=== PATIENT | female | born 1930 | race Caucasian/White ===

== ENCOUNTER 2017-02-14 14:29 | Emergency (ER) | payer MEDICARE, BC ==
--- NOTE | 2017-02-15 05:04 | ER ---
DATE SEEN: 02/14/2017 TIME SEEN: The patient was seen at 1526 hours. HISTORY OF PRESENT ILLNESS: This is an 86-year-old woman, who had urinary tract symptoms of frequency, urgency, and dysuria last night. She has not had urinary tract symptoms for a year. ALLERGIES: She is allergic to multiple medications including bacitracin, Keflex, penicillin, ceftriaxone, clindamycin, ketorolac, levofloxacin, sulfamethoxazole and trimethoprim, cefadroxil, and nitrofurantoin. MEDICATIONS: Currently: 1. Calcium carbonate. 2. Zebeta - bisoprolol, intrinsic sympathomimetic beta-dayne. 3. Prednisone. 4. Multivitamin. REVIEW OF SYSTEMS: She has multiple pregnancies 5, para 5-0-0-5. Degenerative joint disease, rheumatism. No history of dactylitis, except she has some rheumatism. PHYSICAL EXAMINATION: VITAL SIGNS: See nurse's note for vital signs. GENERAL: Alert woman, in mild distress, very pleasant. Looks younger than her age (86). HEENT: Without abnormality. TMs negative. Pharynx without abnormality. No thyromegaly or masses. NECK: No cervical adenopathy. LUNGS: Clear without rales, rhonchi, or wheezes. HEART: S1, S2. No murmur. No irregular rate and rhythm. ABDOMEN: Soft. No guarding. No rebound. She has mild suprapubic discomfort. No CVA percussion tenderness. LOWER EXTREMITIES: Without edema. ASSESSMENT: Urinary tract infections, greater than 100 wbc's, greater than 100 rbc's, few bacteria. The latter findings without bacteria would suggest she could have a stone, interstitial cystitis, or a tumor in the bladder. PLAN: Treat empirically with an antibiotic. Initially, she was placed on fosfomycin because she has so many allergies, but the pharmacy called and does not have it. Consequently, she was placed on Augmentin 500 mg b.i.d., 20 tablets. Follow up with doctor in a week or earlier if worse. Consider cystoscopy. /[id number] LIZZETH/MED PRADO
[2017-02-15 10:53] VITALS: BP 150/70
== END 2017-02-14 15:43 | disposition home or self-care (01) ==
LOC: FB.ED 14:29
DX: N39.0 Urinary tract infection, site not specified (principal)
CPT/HCPCS: 81001; 87086; 87088; 87186; 99282; 99283

== ENCOUNTER 2018-09-27 06:28 | Day surgery (SDC) | payer MEDICARE, BC ==
[2018-09-27] MEDS ORDERED: fentaNYL 100 MCG/2 ML SDV IV ONE (06:29)
[2018-09-27] MEDS ORDERED: Midazolam 1 MG/ML 2 ML SDV IV ONE (06:29)
[2018-09-27] MEDS ORDERED: Sodium Chloride 0.9% 10 ML Syringe FLUSH PRN (06:30)
[2018-09-27 09:11] VITALS: BP 108/57
--- NOTE | 2018-09-28 09:36 | OR ---
DATE OF OPERATION: 09/27/2018 SURGEON: Johanna Brunner MD PREOPERATIVE DIAGNOSIS: Visually significant cataract, left eye. POSTOPERATIVE DIAGNOSIS: Visually significant cataract, left eye. PROCEDURES PERFORMED: Phacoemulsification with intraocular lens placement, left eye. ASSISTANTS: None. ANESTHESIA: Local with sedation. COMPLICATIONS: None. BLOOD LOSS: None. IMPLANTS: PAKO PCB00, 21.0 diopter lens implanted. CDE: 4.68. DESCRIPTION OF PROCEDURE: After risks and benefits were reviewed with the patient, consent was obtained in the preoperative area, and the operative eye was marked with a surgical pen. In the preoperative area, a pledget was used to dilate the pupil consisting of a mixture of phenylephrine 10%, cyclopentolate 2%, moxifloxacin 0.5%, and bupivacaine 0.75%. The patient was taken to the operating room, where a time-out was performed, and the patient was placed under monitored anesthesia care. Topical tetracaine was used for anesthesia. The operative eye was prepped and draped for ophthalmic surgery, and the microscope was brought into position and focussed. A paracentesis incision was made, followed by injection of preservative-free 1% lidocaine into the anterior chamber, followed by injection of Viscoat into the anterior chamber. A microkeratome blade was used to make a corneal limbal incision temporarily. A cystotome was used to make the beginning of the capsulorrhexis, which was carried around 360 degrees in a curvilinear fashion using Utrata forceps. A Garcia cannula with BSS was used to hydrodissect and hydro-delineate the nucleus. The nucleus was removed in a divide and conquer manner using phacoemulsification. Irrigation and aspiration were used to remove the remaining cortical material. Provisc was used to inflate the capsular bag, and a pre-loaded PAKO PCB00, 21.0 diopter lens, serial number [id number], was injected into the capsular bag. A Sinskey hook was used to position and center the lens. Next, irrigation and aspiration was used to remove any remaining viscoelastic and cortical material from the anterior chamber. BSS on a cannula was used to inflate the anterior chamber and hydrate the wound. The wound was checked and found to be watertight. 1 mg of Moxifloxacin was injected into the anterior chamber. Drapes were removed and the eye was cleaned. A drop of brimonidine 0.15% and a drop of TobraDex was placed. The eye was shielded, and the patient was taken to the recovery room in stable condition. /[id number] MAXIMILIANO/MED CC: CHANELLE BENZ, ADITI [email or web address]
== END 2018-09-27 09:27 | disposition home or self-care (01) ==
LOC: FB.SDS 06:28
PROVIDERS: ATTEND Ophthalmology
DX: H25.812 Combined forms of age-related cataract, left eye (principal); H02.889 Meibomian gland dysfunction of unspecified eye, unspecified eyelid; H35.3120 Nonexudative age-related macular degeneration, left eye, stage unspecified; H35.3210 Exudative age-related macular degeneration, right eye, stage unspecified; H50.9 Unspecified strabismus; I10 Essential (primary) hypertension; G62.9 Polyneuropathy, unspecified; K57.92 Diverticulitis of intestine, part unspecified, without perforation or abscess without bleeding; M35.3 Polymyalgia rheumatica; M79.89 Other specified soft tissue disorders; Z88.1 Allergy status to other antibiotic agents; Z88.8 Allergy status to other drugs, medicaments and biological substances; Z98.41 Cataract extraction status, right eye; Z96.1 Presence of intraocular lens; Z85.038 Personal history of other malignant neoplasm of large intestine; Z79.52 Long term (current) use of systemic steroids; Z79.899 Other long term (current) drug therapy
CPT/HCPCS: 00142-QZ; J2250; J3010

== ENCOUNTER 2018-11-16 08:13 | Inpatient (IN) | payer MEDICARE, BC ==
[2018-11-16] MEDS ORDERED: Bisacodyl 5 MG Tab PO PRN (12:18)
[2018-11-16] MEDS ORDERED: Promethazine 25 MG Tab PO ONE (12:19)
[2018-11-16] MEDS: Acetaminophen 500 MG Tab PO SCH ×2 (14:00→22:05)
--- NOTE | 2018-11-16 15:28 | PCM.HP ---
H&P History of Present Illness - General Date of Service: 11/16/18 Admit Problem/Dx: Admission Diagnosis/Problem Admission Diagnosis/Problem Rehabilitation therapy Source of Information: Patient, Family, Old Records History Limitations: Reports: No Limitations - History of Present Illness Initial Comments - Free Text/Narative: Patient is an 88 year old female who sustained left hip fracture on November 12. She underwent open reduction [facility] She had monitoring for low hemoglobin which dropped to 8.0 yesterday, repeat Hgb in our facility today is 8.8. She had some fatigue, dizziness yesterday but nothing today. Tired, deconditioning. No fevers, chills, sinus congestion, sore throat. No shortness of breath, chest pain or palpitations. No abdominal pain, vomiting, constipation or diarrhea. She has had nausea since injury and [employer] has not worked for her symptoms. Her daughter states that Benadryl seemed to help. Her appetite has been poor due to the nausea. Denies any frequency, dysuria or hematuria. Some edema in left leg but denies any pain. She states she had her doctor tell her she had a murmur but was never have a work up for it. History of right colon cancer treated with resection, diverticulosis also treated with left colon resection. - Related Data Allergies/Adverse Reactions: Allergies Allergy/AdvReac Type Severity Reaction Status Date / Time cefadroxil hydrate Allergy Rash Verified 09/27/18 07:10 [From Duricef] ceftriaxone sodium Allergy Rash Verified 09/27/18 07:10 [From Rocephin] clindamycin HCl Allergy Rash Verified 09/27/18 07:10 [From Cleocin] clindamycin palmitate HCl Allergy Rash Verified 09/27/18 07:10 [From Cleocin] clindamycin phosphate Allergy Rash Verified 09/27/18 07:10 [From Cleocin] ketorolac Allergy Rash Verified 09/27/18 07:10 levofloxacin [From Levaquin] Allergy Rash Verified 09/27/18 07:10 nitrofurantoin Allergy Pain Verified 09/27/18 07:10 sulfamethoxazole Allergy Rash Verified 09/27/18 07:10 [From Bactrim] trimethoprim [From Bactrim] Allergy Rash Verified 09/27/18 07:10 Home Medications: Home Meds predniSONE [Prednisone] 2 mg PO DAILY 02/17/15 [History] Bisoprolol/Hydrochlorothiazide [Bisoprolol/HCTZ 5-6.25 MG] 1 tab PO DAILY [History] Lutein 1 cap PO DAILY 09/22/18 [History] Acetaminophen [Acetaminophen Extra Strength] 1,000 mg PO Q8H 11/16/18 [History] Calcium Carbonate [Calcium] 500 mg PO WITHBREAKFAST 11/16/18 [History] Cholecalciferol (Vitamin D3) [Vitamin D3] 25 mcg PO DAILY 11/16/18 [History] Enoxaparin [Lovenox] 40 mg SUBCUT DAILY 11/16/18 [History] Polyethylene Glycol 3350 [MiraLAX] 17 gm PO DAILY 11/16/18 [History] Sennosides/Docusate Sodium [Senna-S] 1 each PO BID 11/16/18 [History] diphenhydrAMINE [Benadryl] 25 mg PO BEDTIME PRN 11/16/18 [History] oxyCODONE 2.5 mg PO Q4H PRN 11/16/18 [History] oxyCODONE 5 mg PO Q4H PRN 11/16/18 [History] Past Medical History HEENT History: Reports: Cataract, Macular Degeneration Cardiovascular History: Reports: Heart Murmur, High Cholesterol, Hypertension Other Cardiovascular History: murmur not specified Gastrointestinal History: Reports: Diverticulosis Genitourinary History: Reports: UTI, Recurrent Musculoskeletal History: Reports: Other (See Below) Other Musculoskeletal History: POLYMYALGIA RHEUMATICA Oncologic (Cancer) History: Reports: Colon - Past Surgical History HEENT Surgical History: Reports: Cataract Surgery Other HEENT Surgeries/Procedures: LEFT CATARACT SURGERY 6 WEEKS AGO. RIGHT CATARACT SURGERY 5 YEARS AGO. GI Surgical History: Reports: Appendectomy, Other (See Below) Other GI Surgeries/Procedures: RIGHT & LEFT COLECTOMY PARTIAL W ANASTOMOSIS, COLON CA & DIVERTICULOSIS Female Surgical History: Reports: Hysterectomy, Tubal Ligation Oncologic Surgical History: Reports: None Social & Family History - Family History Family Medical History: Noncontributory Cardiac: Reports: Other (See Below) Other Cardiac Family History: mother had develop cardiac problem on her 102 years. Respiratory: Reports: None Musculoskeletal: Reports: Arthritis, Other (See Below) Other Musculoskeletal Family History: father had arthritis Oncologic: Reports: Lymphoma, Other (See Below) Other Oncologic Family History: pt's father had lymphoma. - Tobacco Use Smoking Status *Q: Never Smoker - Caffeine Use Caffeine Use: Reports: Coffee Other Caffeine Use: half a cup of coffee a day. - Alcohol Use Alcohol Use History: No - Recreational Drug Use Recreational Drug Use: No H&P Review of Systems - Review of Systems: Review Of Systems: See Below General: Reports: Fatigue. Denies: Fever, Chills, Diaphoresis HEENT: Denies: Ear Pain, Eye Pain, Rhinitis, Sinus Congestion, Sore Throat Pulmonary: Denies: Shortness of Breath, Cough Cardiovascular: Reports: Edema. Denies: Chest Pain, Palpitations, Lightheadedness Gastrointestinal: Reports: Decreased Appetite, Nausea. Denies: Abdominal Pain, Black Stool, Bloody Stool, Constipation, Diarrhea, Vomiting Genitourinary: Denies: Dysuria, Frequency, Hematuria Musculoskeletal: Reports: Leg Pain Skin: Reports: Pallor Psychiatric: Denies: Confusion Neurological: Denies: Dizziness, Headache Immunologic: Denies: Environmental Allergy, Pollen Allergy Exam - Exam Exam: See Below - Vital Signs Vital Signs: Last Vital Signs Temp 37.1 C 11/16/18 12:00 Pulse 68 11/16/18 12:00 Resp 16 11/16/18 12:00 BP 144/64 H 11/16/18 12:00 Pulse Ox 97 11/16/18 12:00 Weight: 77.593 kg - Exam General: Alert, Oriented, Cooperative HEENT: PERRLA, Conjunctiva Clear, EOMI, Mucosa Moist & [place], Nares Patent, Posterior Pharynx Clear, TMs Clear Neck: Supple, Trachea Midline, +2 Carotid Pulse wo Bruit Lungs: Clear to Auscultation Cardiovascular: Regular Rate, Regular Rhythm, Systolic Murmur (non-radiating, best heard at Right 4th intercostal space) GI/Abdominal Exam: Normal Bowel Sounds, Soft, Non-Tender, No Distention Extremities: Non-Tender, Pedal Edema (trace LLE, no edema on right) Peripheral Pulses: 2+: Radial (L), Radial (R), Dorsalis Pedis (L), Dorsalis Pedis (R) Skin: Warm, Dry, Intact, Ecchymosis (posterior pharynx) Neurological: Cranial Nerves Intact, Normal Speech Neuro Extensive - Mental Status: Alert, Oriented x3, Normal Mood/Affect, Normal Cognition, Memory Intact - Patient Data Lab Results Last 24 hrs: Laboratory Results - last 24 hr 11/16/18 11/16/18 Range/Units 12:00 12:00 WBC 11.8 (4.5-12.0) X10-3/uL RBC 3.06 L (3.23-5.20) x10(6)uL Hgb 8.8 L (11.5-15.5) g/dL Hct 26.0 L (30.0-51.3) % MCV 84.9 (80-96) fL MCH 28.9 (27.7-33.6) pg MCHC 34.1 (32.2-35.4) g/dL RDW 12.5 (11.5-15.5) % Plt Count 261 (125-369) X10(3)uL MPV 7.3 L (7.4-10.4) fL Neut % (Auto) 79.4 (46-82) % Lymph % (Auto) 13.2 (13-37) % [facility] % (Auto) 6.0 (4-12) % Eos % (Auto) 1 (1.0-5.0) % Baso % (Auto) 0 (0-2) % Neut # (Auto) 9.4 H (1.6-8.3) # Lymph # (Auto) 1.6 (0.6-5.0) # [facility] # (Auto) 0.7 (0.0-1.3) # Eos # (Auto) 0.1 (0.0-0.8) # Baso # (Auto) 0.0 (0.0-0.2) # Sodium 137 (135-145) mmol/L Potassium 3.7 (3.5-5.3) mmol/L Chloride 98 L (100-110) mmol/L Carbon Dioxide 31 (21-32) mmol/L BUN 25 H (7-18) mg/dL Creatinine 1.0 (0.55-1.02) mg/dL Est Cr Clr Drug Dosing TNP Estimated GFR (MDRD) 52 L (>60) BUN/Creatinine Ratio 25.0 H (9-20) Glucose 177 H (80-116) mg/dL Calcium 9.2 (8.6-10.2) mg/dL Result Diagrams: 11/16/18 12:00 11/16/18 12:00 *Q Meaningful Use (ADM) - VTE Risk Assess *Q Each Risk Factor Represents 1 Point: History of prior major surgery less than 1 month Total Score 1 Point Risk Factors: 1 Each Risk Factor Represents 2 Points: Malignancy (present or previous) Total Score 2 Point Risk Factors: 2 Each Risk Factor Represents 3 Points: Age 75 Years or Greater Total Score 3 Point Risk Factors: 3 Each Risk Factor Represents 5 Points: Hip, Pelvis or Leg Fracture, Less than 1 month Total Score 5 Point Risk Factors: 5 Venous Thromboembolism Risk Factor Score *Q: 11 - Problem List (1) Closed fracture of left hip SNOMED Code(s): 676588470 ICD Code: S72.002A - FRACTURE OF UNSP PART OF NECK OF LEFT FEMUR, INIT Status: Acute Current Visit: Yes Onset Date: ~11/12/18 (2) Essential hypertension SNOMED Code(s): 59003792 ICD Code: I10 - ESSENTIAL (PRIMARY) HYPERTENSION Status: Acute Current Visit: Yes (3) Polymyalgia rheumatica SNOMED Code(s): 35497311 ICD Code: M35.3 - POLYMYALGIA RHEUMATICA Status: Acute Current Visit: Yes (4) Status post-operative repair of closed fracture of left hip SNOMED Code(s): 858392689 ICD Code: Z98.890 - OTHER SPECIFIED POSTPROCEDURAL STATES; Z87.81 - PERSONAL HISTORY OF (HEALED) TRAUMATIC FRACTURE Status: Acute Current Visit: Yes Onset Date: ~11/13/18 Problem Details: by Dr Camara (5) Acute blood loss anemia SNOMED Code(s): 848122375 ICD Code: D62 - ACUTE POSTHEMORRHAGIC ANEMIA Status: Acute Current Visit : Yes Problem List Initiated/Reviewed/Updated: Yes Orders Last 24hrs: Active Orders 24 hr Category Date Time Status Patient Status [ADT] Routine ADT 11/16/18 11:26 Active Antiembolic Devices [RC] .Routine Care 11/16/18 11:31 Active Cooling Warming Measures [RC] ASDIRECTED Care 11/16/18 11:38 Active Dressing Change [Wound Care] [RC] DAILY Care 11/16/18 11:41 Active Elevate Extremity [RC] BID Care 11/16/18 11:40 Active Height and Weight [RC] WEEKLY Care 11/16/18 11:26 Active May Shower [RC] ASDIRECTED Care 11/16/18 11:31 Active Oxygen Therapy [RC] PRN Care 11/16/18 11:26 Active Up ad Elana [RC] ASDIRECTED Care 11/16/18 11:31 Active VTE/DVT Education [RC] DAILY Care 11/16/18 11:26 Active Vital Signs [RC] 08 Care 11/16/18 11:26 Active OT Evaluation and Treatment [CONS] Routine Cons 11/16/18 11:31 Active PT Evaluation and Treatment [CONS] Routine Cons 11/16/18 11:31 Active Regular Diet [DIET] Diet 11/16/18 Dinner Active Acetaminophen [Tylenol Extra Strength] Med 11/16/18 14:00 Active 1,000 mg PO Q8H Bisacodyl [Dulcolax] Med 11/16/18 12:18 Active 5 mg PO DAILY PRN Bisoprolol/Hydrochlorothiazide [Ziac 5-6.25 MG] Med 11/17/18 09:00 Active 1 tab PO DAILY Calcium Carbonate [Oyster Shell Calcium] Med 11/17/18 08:00 Active 500 mg PO WITHBREAKFAST Cholecalciferol (Vitamin D3) [Vitamin D3] Med 11/17/18 09:00 Active 25 mcg PO DAILY Docusate Sodium/Sennosides [Senna Plus] Med 11/16/18 21:00 Active 1 tab PO BID Enoxaparin [Lovenox] Med 11/17/18 09:00 Active 40 mg SUBCUT DAILY Lutein Med 11/17/18 09:00 Active 10 mg PO DAILY Polyethylene Glycol 3350 [MiraLAX] Med 11/17/18 09:00 Active 17 gm PO DAILY Promethazine [Phenergan] Med 11/16/18 12:35 Active 12.5 mg PO Q4H PRN diphenhydrAMINE [Benadryl] Med 11/16/18 12:17 Active 25 mg PO BEDTIME PRN oxyCODONE Med 11/16/18 12:17 Active 2.5 mg PO Q4H PRN oxyCODONE Med 11/16/18 12:17 Active 5 mg PO Q4H PRN predniSONE Med 11/17/18 09:00 Active 2 mg PO DAILY Anticoagulation Contraindications VTE [AST] Per Unit Oth 11/16/18 11:31 Ordered Routine Antiembolic Hose [OM.PC] Per Unit Routine Oth 11/16/18 11:33 Ordered Ice Pack [Ice Therapy] [OM.PC] Routine Ot 11/16/18 11:38 Ordered Patient May [OM.PC] Click To Edit Ot 11/16/18 11:31 Ordered Adryan Sutures Removal [RC] ROUTINE Oth 11/28/18 09:00 Active VTE Pharmacological Contraindications [AST] Per Unit Oth 11/16/18 11:31 Ordered Routine Resuscitation Status Routine Resus Stat 11/16/18 11:25 Ordered Medication Orders Acetaminophen (Tylenol Extra Strength) 1,000 mg PO Q8H [facility] Last Admin: 11/16/18 14:00 Dose: 1,000 mg Bisacodyl (Dulcolax) 5 mg PO DAILY PRN PRN Reason: Constipation Bisoprolol Fumarate/HCTZ (Ziac 5-6.25 Mg) 1 tab PO DAILY [facility] Calcium Carbonate/Glycine (Oyster Shell Calcium) 500 mg PO WITHBREAKFAST [facility] Cholecalciferol (Vitamin D3) 25 mcg PO DAILY [facility] Diphenhydramine HCl (Benadryl) 25 mg PO BEDTIME PRN PRN Reason: Insomnia Enoxaparin Sodium (Lovenox) 40 mg SUBCUT DAILY [facility] Stop: 12/10/18 09:01 Lutein (Lutein) 10 mg PO DAILY [facility] Oxycodone HCl (Oxycodone) 2.5 mg PO Q4H PRN PRN Reason: Pain (moderate 4-6) Oxycodone HCl (Oxycodone) 5 mg PO Q4H PRN PRN Reason: Pain (severe 7-10) Polyethylene Glycol (Miralax) 17 gm PO DAILY [facility] Prednisone (Prednisone) 2 mg PO DAILY [facility] Promethazine HCl (Phenergan) 12.5 mg PO Q4H PRN PRN Reason: NAUSEA/VOMITING Senna/Docusate Sodium (Senna Plus) 1 tab PO BID [facility] Assessment/Plan Comment:: 1. Admit to swing bed for rehab services, PT/OT. 2. Continue home medications. 3. Continue pain regiment from discharge: Oxycodone 2.5 mg for moderate pain and 5 mg for severe pain. Tylenol. Patient does not want to stay on oxycodone and would like to start weaning possibly Wednesday. 4. Acute blood loss anemia secondary to fracture: Hgb up to 8.8 today. Repeat Wednesday or earlier if asymptomatic. 5. Nausea: will try promethazine since Babar worked in [place], if controls her symptoms then will have available q4h as needed. 6. DVT prophylaxis: Lovenox 40 mg SQ daily x 24 days. 7. Wound care: occlusive dressing in place for 7 days, next dressing change on November 23, may change earlier if drainage present. Adryan due to be removed November 28. May shower with waterproof covering over dressing. 8. Code status: DNR/DNI
[2018-11-16] MEDS: oxyCODONE 5 MG Tab PO PRN ×2 (16:54→21:09)
[2018-11-17] MEDS: oxyCODONE 5 MG Tab PO PRN ×4 (01:19→22:00)
[2018-11-17] MEDS: Acetaminophen 500 MG Tab PO SCH ×3 (05:59→21:59)
[2018-11-17] MEDS: Calcium Carbonate 500 MG Tablet PO SCH (08:51)
[2018-11-17] MEDS: Cholecalciferol (Vitamin D3) 25 MCG Tab PO SCH (08:52)
[2018-11-17] MEDS: Polyethylene Glycol 3350 Powder 17 GM Packet PO SCH (08:54)
[2018-11-17] MEDS: Enoxaparin 40 MG/0.4 ML Syringe SUBCUT SCH (08:57)
[2018-11-17] MEDS ORDERED: predniSONE 1 MG Tab PO SCH (09:00)
[2018-11-17] MEDS: Promethazine 25 MG Tab PO PRN ×2 (17:19→21:59)
[2018-11-17] MEDS: diphenhydrAMINE 25 MG Cap PO PRN (19:50)
[2018-11-18] MEDS: Promethazine 25 MG Tab PO PRN ×2 (06:44→21:01)
[2018-11-18] MEDS: oxyCODONE 5 MG Tab PO PRN ×3 (06:44→19:04)
[2018-11-18] MEDS: Acetaminophen 500 MG Tab PO SCH ×3 (06:44→21:01)
[2018-11-18] MEDS: Cholecalciferol (Vitamin D3) 25 MCG Tab PO SCH (08:50)
[2018-11-18] MEDS: predniSONE 1 MG Tab PO SCH (08:50)
[2018-11-18] MEDS: Calcium Carbonate 500 MG Tablet PO SCH (08:50)
[2018-11-18] MEDS: Enoxaparin 40 MG/0.4 ML Syringe SUBCUT SCH (08:50)
[2018-11-18] MEDS: Polyethylene Glycol 3350 Powder 17 GM Packet PO SCH (08:50)
[2018-11-19] MEDS: oxyCODONE 5 MG Tab PO PRN ×2 (07:01→21:51)
[2018-11-19] MEDS: Acetaminophen 500 MG Tab PO SCH ×3 (07:01→21:51)
[2018-11-19] MEDS: Calcium Carbonate 500 MG Tablet PO SCH (08:59)
[2018-11-19] MEDS: Enoxaparin 40 MG/0.4 ML Syringe SUBCUT SCH (09:02)
[2018-11-19] MEDS: predniSONE 1 MG Tab PO SCH (09:03)
[2018-11-19] MEDS: Polyethylene Glycol 3350 Powder 17 GM Packet PO SCH (09:03)
[2018-11-19] MEDS: Cholecalciferol (Vitamin D3) 25 MCG Tab PO SCH (09:05)
[2018-11-19] MEDS: Promethazine 25 MG Tab PO PRN (21:51)
[2018-11-20] MEDS: Acetaminophen 500 MG Tab PO SCH ×3 (07:02→21:19)
[2018-11-20] MEDS: Enoxaparin 40 MG/0.4 ML Syringe SUBCUT SCH (09:05)
[2018-11-20] MEDS: Calcium Carbonate 500 MG Tablet PO SCH (09:05)
[2018-11-20] MEDS: Polyethylene Glycol 3350 Powder 17 GM Packet PO SCH (09:06)
[2018-11-20] MEDS: predniSONE 1 MG Tab PO SCH (09:07)
[2018-11-20] MEDS: Cholecalciferol (Vitamin D3) 25 MCG Tab PO SCH (09:07)
[2018-11-20] MEDS: oxyCODONE 5 MG Tab PO PRN (21:20)
[2018-11-20] MEDS: diphenhydrAMINE 25 MG Cap PO PRN (21:20)
[2018-11-21] MEDS: Acetaminophen 500 MG Tab PO SCH ×3 (07:23→22:16)
[2018-11-21] MEDS: Enoxaparin 40 MG/0.4 ML Syringe SUBCUT SCH (09:05)
[2018-11-21] MEDS: Polyethylene Glycol 3350 Powder 17 GM Packet PO SCH (09:05)
[2018-11-21] MEDS: predniSONE 1 MG Tab PO SCH (09:06)
[2018-11-21] MEDS: Calcium Carbonate 500 MG Tablet PO SCH (09:06)
[2018-11-21] MEDS: Cholecalciferol (Vitamin D3) 25 MCG Tab PO SCH (09:07)
[2018-11-22] MEDS: Acetaminophen 500 MG Tab PO SCH ×3 (05:09→21:16)
[2018-11-22] MEDS: Calcium Carbonate 500 MG Tablet PO SCH (08:19)
[2018-11-22] MEDS: Promethazine 25 MG Tab PO PRN (08:19)
[2018-11-22] MEDS: predniSONE 1 MG Tab PO SCH (08:21)
[2018-11-22] MEDS: Enoxaparin 40 MG/0.4 ML Syringe SUBCUT SCH (08:22)
[2018-11-22] MEDS: Polyethylene Glycol 3350 Powder 17 GM Packet PO SCH (08:23)
[2018-11-22] MEDS: Cholecalciferol (Vitamin D3) 25 MCG Tab PO SCH (08:25)
[2018-11-23] MEDS: Acetaminophen 500 MG Tab PO SCH ×3 (05:24→20:59)
[2018-11-23] MEDS: oxyCODONE 5 MG Tab PO PRN ×2 (08:23→12:53)
[2018-11-23] MEDS: Calcium Carbonate 500 MG Tablet PO SCH (08:25)
[2018-11-23] MEDS: Polyethylene Glycol 3350 Powder 17 GM Packet PO SCH (08:26)
[2018-11-23] MEDS: Enoxaparin 40 MG/0.4 ML Syringe SUBCUT SCH (08:29)
[2018-11-23] MEDS: Promethazine 25 MG Tab PO PRN ×2 (08:31→08:38)
[2018-11-23] MEDS: predniSONE 1 MG Tab PO SCH (08:32)
[2018-11-23] MEDS: Cholecalciferol (Vitamin D3) 25 MCG Tab PO SCH (08:32)
[2018-11-24] MEDS: Acetaminophen 500 MG Tab PO SCH ×3 (05:35→21:19)
[2018-11-24] MEDS: predniSONE 1 MG Tab PO SCH (08:17)
[2018-11-24] MEDS: Calcium Carbonate 500 MG Tablet PO SCH (08:17)
[2018-11-24] MEDS: Polyethylene Glycol 3350 Powder 17 GM Packet PO SCH ×2 (08:18→18:16)
[2018-11-24] MEDS: Enoxaparin 40 MG/0.4 ML Syringe SUBCUT SCH (08:18)
[2018-11-24] MEDS: Cholecalciferol (Vitamin D3) 25 MCG Tab PO SCH (08:19)
[2018-11-24] MEDS: oxyCODONE 5 MG Tab PO PRN (08:38)
[2018-11-25] MEDS: Acetaminophen 500 MG Tab PO SCH ×3 (06:38→21:25)
[2018-11-25] MEDS: Cholecalciferol (Vitamin D3) 25 MCG Tab PO SCH (08:30)
[2018-11-25] MEDS: Enoxaparin 40 MG/0.4 ML Syringe SUBCUT SCH (08:30)
[2018-11-25] MEDS: predniSONE 1 MG Tab PO SCH (08:30)
[2018-11-25] MEDS: Calcium Carbonate 500 MG Tablet PO SCH (08:30)
[2018-11-25] MEDS: Polyethylene Glycol 3350 Powder 17 GM Packet PO SCH (08:30)
[2018-11-25] MEDS: oxyCODONE 5 MG Tab PO PRN ×2 (08:36→13:34)
[2018-11-26] MEDS: Acetaminophen 500 MG Tab PO SCH ×3 (06:10→21:31)
[2018-11-26] MEDS: Enoxaparin 40 MG/0.4 ML Syringe SUBCUT SCH (08:57)
[2018-11-26] MEDS: Cholecalciferol (Vitamin D3) 25 MCG Tab PO SCH (08:57)
[2018-11-26] MEDS: oxyCODONE 5 MG Tab PO PRN ×2 (08:58→19:39)
[2018-11-26] MEDS: Calcium Carbonate 500 MG Tablet PO SCH (08:58)
[2018-11-26] MEDS: predniSONE 1 MG Tab PO SCH (08:58)
[2018-11-26] MEDS: Polyethylene Glycol 3350 Powder 17 GM Packet PO SCH (08:59)
[2018-11-27] MEDS: Enoxaparin 40 MG/0.4 ML Syringe SUBCUT SCH (08:34)
[2018-11-27] MEDS: Cholecalciferol (Vitamin D3) 25 MCG Tab PO SCH (08:35)
[2018-11-27] MEDS: Calcium Carbonate 500 MG Tablet PO SCH (08:35)
[2018-11-27] MEDS: predniSONE 1 MG Tab PO SCH (08:35)
[2018-11-27] MEDS: Acetaminophen 500 MG Tab PO SCH ×3 (08:35→21:57)
[2018-11-27] MEDS: Polyethylene Glycol 3350 Powder 17 GM Packet PO SCH (08:35)
[2018-11-27] MEDS: Ferrous Sulfate 325 MG Tab PO SCH (17:44)
[2018-11-28] MEDS: Acetaminophen 500 MG Tab PO SCH ×3 (07:34→22:35)
--- NOTE | 2018-11-28 08:25 | PN ---
DATE SEEN: 11/25/2018 HISTORY: Maryuri is an 88-year-old woman from [place], who fell while standing in her kitchen on November 12, 2018. She underwent ORIF of the left hip on November 13 and after acute care hospitalization, was discharged to [facility] in [place] swing bed on 11/16/2018. She has been proceeding with therapy ambulation. Her pain control is improving, but she still finds she needs to take pain pills before her therapy sessions to be comfortable. PHYSICAL EXAMINATION: GENERAL: She is alert and a good historian. VITAL SIGNS: Blood pressure 145/56, pulse 68 and regular, respirations 20, temperature 98.1, and O2 saturation 99% on room air. SKIN: Clear without sign of visible trauma. Slacks are not removed to inspect her incision today. Mouth is dry. LUNGS: Clear. HEART: Regular without murmur or gallop. ABDOMEN: Soft and nontender. EXTREMITIES: Show no edema at the ankle. ASSESSMENT: 1. Open reduction and internal fixation, left hip, improving with therapy. 2. Chronic essential hypertension. 3. Polymyalgia rheumatica, on low-dose prednisone. PLAN: We will continue her current medications, therapy, and with continued improvement, anticipate discharge to her home in [place] in about one week. Surely, Maryuri is to continue to get Lovenox through December 10, 2018. /[id number] VIOLETA/ALVINL
[2018-11-28] MEDS: Calcium Carbonate 500 MG Tablet PO SCH (08:27)
[2018-11-28] MEDS: Enoxaparin 40 MG/0.4 ML Syringe SUBCUT SCH (08:28)
[2018-11-28] MEDS: predniSONE 1 MG Tab PO SCH (08:28)
[2018-11-28] MEDS: Cholecalciferol (Vitamin D3) 25 MCG Tab PO SCH (08:28)
--- NOTE | 2018-11-28 08:32 | PN ---
DATE SEEN: 11/27/2018 HISTORY: Ms. Grimes is an 88-year-old woman with history of hypertension and polymyalgia rheumatica. She sustained a left hip fracture and underwent ORIF at [facility] in [place] on November 13. She had a drop in hemoglobin to 8 g, but was not transfused. She was sent to [facility] for further therapy on 11/16/2018. She has been doing well in therapy. She does have somewhat hard time getting her compression stockings on. Her pain control is adequate with the current meds. This morning, she noted pain in the left proximal calf that did not seem to be there yesterday. She has not noted any further foot swelling or leg swelling. She has also developed a sore at the upper gluteal cleft consistent with pressure sore from sitting in her recliner and lying on her back in bed. PHYSICAL EXAMINATION: GENERAL: She is alert and a good historian. VITAL SIGNS: Blood pressure 112/49, pulse 70, respirations normal, O2 saturation 98% on room air, and temperature 98.1. SKIN: Reveals significant ecchymoses from the knee down on the left calf. This appears old, no bright erythema, but she has tenderness to palpation in the proximal medial left calf. The skin of the upper gluteal cleft also showed a small ulceration as reported by her nurse, I did not visualize this myself. ASSESSMENT: 1. Tenderness, left calf, now 14 days postop. 2. Pressure ulcer, gluteal cleft. PLAN: DuoDerm to the pressure ulcer, extra padding in her chair, and keep off the sacrum while in bed as best she is able. We will do a Doppler venous study to rule out any clot in her left lower extremity. Continue her current therapy and anticipate discharge to home next week. /[id number] RO/ALVINL
[2018-11-28] MEDS: Polyethylene Glycol 3350 Powder 17 GM Packet PO SCH (08:34)
[2018-11-28] MEDS: Ferrous Sulfate 325 MG Tab PO SCH ×2 (08:42→18:25)
[2018-11-29] MEDS: Acetaminophen 500 MG Tab PO SCH ×3 (06:14→21:26)
[2018-11-29] MEDS: Enoxaparin 40 MG/0.4 ML Syringe SUBCUT SCH (08:46)
[2018-11-29] MEDS: Ferrous Sulfate 325 MG Tab PO SCH ×2 (08:48→18:39)
[2018-11-29] MEDS: Calcium Carbonate 500 MG Tablet PO SCH (08:48)
[2018-11-29] MEDS: Cholecalciferol (Vitamin D3) 25 MCG Tab PO SCH (08:48)
[2018-11-29] MEDS: predniSONE 1 MG Tab PO SCH (08:48)
[2018-11-29] MEDS: oxyCODONE 5 MG Tab PO PRN (11:47)
[2018-11-29] MEDS: Polyethylene Glycol 3350 Powder 17 GM Packet PO SCH (18:39)
[2018-11-30] MEDS: Acetaminophen 500 MG Tab PO SCH ×3 (05:53→21:38)
[2018-11-30] MEDS: Calcium Carbonate 500 MG Tablet PO SCH (08:05)
[2018-11-30] MEDS: Ferrous Sulfate 325 MG Tab PO SCH ×2 (08:05→17:37)
[2018-11-30] MEDS: Enoxaparin 40 MG/0.4 ML Syringe SUBCUT SCH (08:05)
[2018-11-30] MEDS: predniSONE 1 MG Tab PO SCH (08:06)
[2018-11-30] MEDS: Polyethylene Glycol 3350 Powder 17 GM Packet PO SCH (08:06)
[2018-11-30] MEDS: Cholecalciferol (Vitamin D3) 25 MCG Tab PO SCH (08:07)
[2018-11-30] MEDS: oxyCODONE 5 MG Tab PO PRN (08:16)
[2018-12-01] MEDS: Acetaminophen 500 MG Tab PO SCH ×3 (06:29→21:32)
[2018-12-01] MEDS: Ferrous Sulfate 325 MG Tab PO SCH ×2 (08:08→17:16)
[2018-12-01] MEDS: Calcium Carbonate 500 MG Tablet PO SCH (08:08)
[2018-12-01] MEDS: Cholecalciferol (Vitamin D3) 25 MCG Tab PO SCH (08:08)
[2018-12-01] MEDS: predniSONE 1 MG Tab PO SCH (08:08)
[2018-12-01] MEDS: Polyethylene Glycol 3350 Powder 17 GM Packet PO SCH (08:09)
[2018-12-01] MEDS: Enoxaparin 40 MG/0.4 ML Syringe SUBCUT SCH (08:09)
[2018-12-01] MEDS: oxyCODONE 5 MG Tab PO PRN ×2 (09:54→16:47)
[2018-12-01] MEDS ORDERED: Polyethylene Glycol 3350 Powder 17 GM Packet PO PRN (13:40)
[2018-12-02] MEDS: Acetaminophen 500 MG Tab PO SCH ×3 (06:12→21:15)
[2018-12-02] MEDS: Calcium Carbonate 500 MG Tablet PO SCH (08:52)
[2018-12-02] MEDS: Ferrous Sulfate 325 MG Tab PO SCH ×2 (08:52→19:18)
[2018-12-02] MEDS: predniSONE 1 MG Tab PO SCH (08:52)
[2018-12-02] MEDS: Enoxaparin 40 MG/0.4 ML Syringe SUBCUT SCH (08:52)
[2018-12-02] MEDS: Cholecalciferol (Vitamin D3) 25 MCG Tab PO SCH (08:53)
[2018-12-02] MEDS: oxyCODONE 5 MG Tab PO PRN (09:09)
[2018-12-03] MEDS: Acetaminophen 500 MG Tab PO SCH ×3 (06:03→21:42)
[2018-12-03] MEDS: Enoxaparin 40 MG/0.4 ML Syringe SUBCUT SCH (08:28)
[2018-12-03] MEDS: Cholecalciferol (Vitamin D3) 25 MCG Tab PO SCH (08:28)
[2018-12-03] MEDS: Ferrous Sulfate 325 MG Tab PO SCH ×2 (08:28→17:55)
[2018-12-03] MEDS: predniSONE 1 MG Tab PO SCH (08:28)
[2018-12-03] MEDS: Calcium Carbonate 500 MG Tablet PO SCH (08:28)
[2018-12-03] MEDS: oxyCODONE 5 MG Tab PO PRN (08:51)
[2018-12-04] MEDS: Acetaminophen 500 MG Tab PO SCH ×3 (05:54→21:46)
[2018-12-04] MEDS: Ferrous Sulfate 325 MG Tab PO SCH ×2 (08:03→17:50)
[2018-12-04] MEDS: Calcium Carbonate 500 MG Tablet PO SCH (08:04)
[2018-12-04] MEDS: Enoxaparin 40 MG/0.4 ML Syringe SUBCUT SCH (08:05)
[2018-12-04] MEDS: predniSONE 1 MG Tab PO SCH (08:07)
[2018-12-04] MEDS: Cholecalciferol (Vitamin D3) 25 MCG Tab PO SCH (08:08)
[2018-12-04] MEDS: oxyCODONE 5 MG Tab PO PRN (16:37)
[2018-12-05] MEDS: Acetaminophen 500 MG Tab PO SCH ×3 (06:08→21:07)
[2018-12-05] MEDS: Ferrous Sulfate 325 MG Tab PO SCH ×2 (08:00→18:08)
[2018-12-05] MEDS: Calcium Carbonate 500 MG Tablet PO SCH (08:00)
[2018-12-05] MEDS: predniSONE 1 MG Tab PO SCH (09:23)
[2018-12-05] MEDS: Cholecalciferol (Vitamin D3) 25 MCG Tab PO SCH (09:24)
[2018-12-05] MEDS: Enoxaparin 40 MG/0.4 ML Syringe SUBCUT SCH (09:27)
[2018-12-05] MEDS: oxyCODONE 5 MG Tab PO PRN (11:19)
[2018-12-06] MEDS: Acetaminophen 500 MG Tab PO SCH ×3 (06:15→21:11)
[2018-12-06] MEDS: Calcium Carbonate 500 MG Tablet PO SCH (07:45)
[2018-12-06] MEDS: Ferrous Sulfate 325 MG Tab PO SCH ×2 (07:45→17:46)
[2018-12-06] MEDS: Enoxaparin 40 MG/0.4 ML Syringe SUBCUT SCH (08:41)
[2018-12-06] MEDS: Cholecalciferol (Vitamin D3) 25 MCG Tab PO SCH (08:41)
[2018-12-06] MEDS: predniSONE 1 MG Tab PO SCH (08:42)
[2018-12-06] MEDS: oxyCODONE 5 MG Tab PO PRN (08:58)
[2018-12-07] MEDS: Acetaminophen 500 MG Tab PO SCH ×3 (06:21→22:02)
[2018-12-07] MEDS: Calcium Carbonate 500 MG Tablet PO SCH (08:54)
[2018-12-07] MEDS: Ferrous Sulfate 325 MG Tab PO SCH ×2 (08:54→18:35)
[2018-12-07] MEDS: predniSONE 1 MG Tab PO SCH (08:54)
[2018-12-07] MEDS: Enoxaparin 40 MG/0.4 ML Syringe SUBCUT SCH (08:54)
[2018-12-07] MEDS: Cholecalciferol (Vitamin D3) 25 MCG Tab PO SCH (08:55)
[2018-12-08] MEDS: Acetaminophen 500 MG Tab PO SCH ×3 (06:17→21:10)
[2018-12-08] MEDS: Calcium Carbonate 500 MG Tablet PO SCH (08:47)
[2018-12-08] MEDS: Enoxaparin 40 MG/0.4 ML Syringe SUBCUT SCH (08:47)
[2018-12-08] MEDS: Ferrous Sulfate 325 MG Tab PO SCH ×2 (08:47→18:12)
[2018-12-08] MEDS: predniSONE 1 MG Tab PO SCH (08:48)
[2018-12-08] MEDS: Cholecalciferol (Vitamin D3) 25 MCG Tab PO SCH (08:48)
[2018-12-09] MEDS: Acetaminophen 500 MG Tab PO SCH ×3 (06:11→21:25)
--- NOTE | 2018-12-09 09:02 | PCM.PN ---
- General Info Date of Service: 12/09/18 Subjective Update: Patient is feeling well this morning, only taking Tylenol now for pain, especially prior to therapy. Had Care conference yesterday, will be going home on Wednesday. Has follow up with her surgeon Dec 25. No chest pain, shortness of breath, cold symptoms. Had 4 bowel movements yesterday, off oxycodone. No change in color or odor of stools. No nausea, vomiting or abdominal pain. - Patient Data Vitals - Most Recent: Last Vital Signs Temp 37.0 C 12/09/18 06:49 Pulse 65 12/09/18 06:49 Resp 18 12/09/18 06:49 BP 143/65 H 12/09/18 06:49 Pulse Ox 98 12/09/18 06:49 Weight - Most Recent: 73.964 kg Med Orders - Current: Current Medications Acetaminophen (Tylenol Extra Strength) 1,000 mg PO Q8H [facility] Last Admin: 12/09/18 06:11 Dose: 1,000 mg Bisacodyl (Dulcolax) 5 mg PO DAILY PRN PRN Reason: Constipation Bisoprolol Fumarate/HCTZ (Ziac 5-6.25 Mg) 1 tab PO DAILY [facility] Last Admin: 12/08/18 08:48 Dose: 1 tab Calcium Carbonate/Glycine (Oyster Shell Calcium) 500 mg PO WITHBREAKFAST [facility] Last Admin: 12/08/18 08:47 Dose: 500 mg Cholecalciferol (Vitamin D3) 25 mcg PO DAILY [facility] Last Admin: 12/08/18 08:48 Dose: 25 mcg Diphenhydramine HCl (Benadryl) 25 mg PO BEDTIME PRN PRN Reason: Insomnia Last Admin: 11/20/18 21:20 Dose: 25 mg Enoxaparin Sodium (Lovenox) 40 mg SUBCUT DAILY [facility] Stop: 12/10/18 09:01 Last Admin: 12/08/18 08:47 Dose: 40 mg Ferrous Sulfate (Ferrous Sulfate) 325 mg PO BIDMEALS [facility] Last Admin: 12/08/18 18:12 Dose: 325 mg Lutein (Lutein) 10 mg PO DAILY [facility] Last Admin: 12/08/18 08:48 Dose: 10 mg Oxycodone HCl (Oxycodone) 2.5 mg PO Q4H PRN PRN Reason: Pain (moderate 4-6) Last Admin: 12/06/18 08:58 Dose: 2.5 mg Polyethylene Glycol (Miralax) 17 gm PO DAILY PRN PRN Reason: Constipation Prednisone (Prednisone) 4 mg PO DAILY [facility] Last Admin: 12/08/18 08:48 Dose: 4 mg Promethazine HCl (Phenergan) 12.5 mg PO Q4H PRN PRN Reason: NAUSEA/VOMITING Last Admin: 11/23/18 08:38 Dose: 12.5 mg Senna/Docusate Sodium (Senna Plus) 1 tab PO BID [facility] Last Admin: 12/08/18 21:10 Dose: Not Given Discontinued Medications Oxycodone HCl (Oxycodone) 5 mg PO Q4H PRN PRN Reason: Pain (severe 7-10) Last Admin: 11/18/18 19:04 Dose: 5 mg Polyethylene Glycol (Miralax) 17 gm PO DAILY [facility] Last Admin: 12/01/18 08:09 Dose: Not Given Prednisone (Prednisone) 2 mg PO DAILY [facility] Last Admin: 11/17/18 08:52 Dose: 2 mg Promethazine HCl (Phenergan) 12.5 mg PO ONETIME ONE Stop: 11/16/18 12:20 Last Admin: 11/16/18 12:51 Dose: 12.5 mg - Exam General: Alert, Oriented Lungs: Clear to Auscultation, Normal Respiratory Effort Cardiovascular: Regular Rate, Regular Rhythm GI/Abdominal Exam: Normal Bowel Sounds, Soft, Non-Tender Extremities: No Pedal Edema - Problem List & Annotations (1) Status post-operative repair of closed fracture of left hip SNOMED Code(s): 359919879 Code(s): Z98.890 - OTHER SPECIFIED POSTPROCEDURAL STATES; Z87.81 - PERSONAL HISTORY OF (HEALED) TRAUMATIC FRACTURE Status: Acute Current Visit: Yes Onset Date: ~11/13/18 Annotation/Comment:: by Dr Camara (2) Closed fracture of left hip SNOMED Code(s): 397350443 Code(s): S72.002A - FRACTURE OF UNSP PART OF NECK OF LEFT FEMUR, INIT Status: Acute Current Visit: Yes Onset Date: ~11/12/18 (3) Essential hypertension SNOMED Code(s): 84136493 Code(s): I10 - ESSENTIAL (PRIMARY) HYPERTENSION Status: Acute Current Visit: Yes (4) Polymyalgia rheumatica SNOMED Code(s): 01314640 Code(s): M35.3 - POLYMYALGIA RHEUMATICA Status: Acute Current Visit: Yes (5) Acute blood loss anemia SNOMED Code(s): 181955559 Code(s): D62 - ACUTE POSTHEMORRHAGIC ANEMIA Status: Acute Current Visit: Yes - Problem List Review Problem List Initiated/Reviewed/Updated: Yes - Plan Plan:: 1. Continue PT/OT. 2. Continue home medications. 3. Continue pain regiment from discharge: Tylenol. Patient has weaned off Oxycodone, will back off on her bowel regiment so she is not having loose stools. 4. DVT prophylaxis: Lovenox 40 mg SQ daily x 24 days, day 23. 5. Wound care: kwame were removed November 28 and dressings have been discontinued, monitor as needed. 6. Code status: DNR/DNI 7. Discharge planned for Wednesday.
[2018-12-09] MEDS: Calcium Carbonate 500 MG Tablet PO SCH (09:44)
[2018-12-09] MEDS: Ferrous Sulfate 325 MG Tab PO SCH ×2 (09:44→19:45)
[2018-12-09] MEDS: predniSONE 1 MG Tab PO SCH (09:45)
[2018-12-09] MEDS: Cholecalciferol (Vitamin D3) 25 MCG Tab PO SCH (09:45)
[2018-12-09] MEDS: Enoxaparin 40 MG/0.4 ML Syringe SUBCUT SCH (09:46)
--- OUTSIDE RECORDS SUMMARY | 2018-12-09 10:44 | XMSREPORT ---
:1930 Author Organization [facility] Address [address] [place] [address] Care Team Providers Name Role Phone Juan R Rodriguez MD Primary Care Provider Cynthia Frankel GIFTED PROGRAM TEACHER-GROUND SYSTEMS ENGINEER Attributed Provider Reason for Referral Comprehensive Primary Care Plus (Routine) Status Reason Specialty Diagnoses / Referred By Referred To Procedures Contact Contact New Request Advance Care Diagnoses Closed fracture of left hip, initial encounter (HCC) [facility] Cristhian Husain MD [address] [place] [address] [place] [address] Phone: Fax: Scheduling Instructions This is an electronic referral. Reason for Visit Reason Comments Fall Ptarrives via EMS for fall et left hip pain. Pt reports, "I was just standing there. I have a knee that gives me trouble and it just gave way and I lost my balance and landed on my hip". Pt denies being on blood thinner. Pt recieved 75 mcg fentanyl, 0.4 mg dilaudid, et 4 mg zofran en route. Hip Pain Auth/Cert Status Reason Specialty Diagnoses / Procedures Referred By Contact Referred To Contact Encounter Details Date Type Department Care Team Description 11/12/2018 - Hospital Encounter [facility] Mike Jerez MD [address] [place] [address] Closed fracture of 11/16/2018 [place] [facility] Kim Flores MD [address] [place] [address] [phone] left hip (HCC) [address] Rodrigue Cordon MD [address] [place] [address] [phone] Stephen Beckman MD [address] [place] [address] [phone] [place] [address] Lorrie Tian MD [address] [place] [address] [phone] Allergies Active Allergy Reactions Severity Noted Date Comments Na Rash 07/28/2012 Benzoate-Sulfamethoxazole- Trimethoprim Bisacodyl Tannex Other (Specify in 11/15/2017 Facial Comments) flushing/warm Cleocin Rash 07/28/2012 Cefadroxil Rash 07/28/2012 Ketorolac Hives (High) High 06/11/2014 Levofloxacin Rash 11/15/2012 Nitrofurantoin Other (Specify in 05/31/2014 Joint pain Comments) Ceftriaxone Rash 07/28/2012 documented as of this encounter (statuses as of 11/16/2018) Medications Medication Sig Dispensed Refills Start End Status Date Date LUTEIN PO Take by mouth 1 0 Active time per day. predniSONE 1 mg TAKE 2 TABLETS (2 180 tablet 3 Active tabletIndications: MG TOTAL) BY MOUTH 9 Essential 1 TIME PER DAY hypertension bisoprolol-hydroCHL TAKE 1 TABLET BY 90 tablet 3 Active OROthiazide (ZIAC) MOUTH 1 TIME PER 9 5-6.25 mg DAY tabletIndications: Essential hypertension vitamin D3, Take 1 tablet 30 tablet 0 Active cholecalciferol, (1,000 Units) by 9 1000 unit mouth 1 time per tabletIndications: day Closed fracture of left hip, initial encounter ([facility]) calcium carbonate Take 1 tablet 0 Active 1250 (500 Ca) MG (1,250 mg) by 9 TABS mouth 1 time a day tabletIndications: with breakfast Closed fracture of left hip, initial encounter ([facility]) acetaminophen Take 2 tablets 0 Active (TYLENOL) 500 mg (1,000 mg) by 9 tabletIndications: mouth Every 8 Closed fracture of hours left hip, initial encounter ([facility]) diphenhydrAMINE Take 1 capsule (25 0 Active (BENADRYL) 25 mg mg) by mouth at 9 020 capsuleIndications: bedtime as needed Closed fracture of for insomnia left hip, initial encounter ([facility]) enoxaparin Inject 40 mg 0 Active (LOVENOX) 40 mg subcutaneously 1 9 019 syringe (100 mg/mL) time per day for subcutaneous 24 days injection solutionIndications : Closed fracture of left hip, initial encounter ([facility]) oxyCODONE (OXY-IR) Take 0.5 tablets 0 Active 5 mg tablet (2.5 mg) by mouth 9 (immediate Every 4 hours as release)Indications needed for : Closed fracture moderate pain of left hip, initial encounter ([facility]) oxyCODONE (OXY-IR) Take 1 tablet (5 0 Active 5 mg tablet mg) by mouth Every 9 (immediate 4 hours as needed release)Indications for severe pain : Closed fracture of left hip, initial encounter ([facility]) polyethylene glycol Take 1 packet by 0 Active (MIRALAX) mouth 1 time per 9 packetIndications: day Dissolve in 4 Closed fracture of to 8 ounces of left hip, initial water, juice, encounter ([facility]) soda, coffee, tea. senna-docusate Take 1 tablet by 0 Active sodium mouth 2 times a 9 (SENOKOT-S;PERICOLA day ; hold if CE) 8.6-50 MG already had stool tabletIndications: that day Closed fracture of left hip, initial encounter ([facility]) calcium Take 1 tablet by 0 Discontinued carbonate-vitamin D mouth 1 time a day 019 (CALTRATE 600 + VIT with breakfast. D) 600mg-200 unit tablet Multiple Vitamin Take 1 tablet by 0 Discontinued (MULTIVITAMIN) TABS mouth 1 time per 019 day. Glucosamine-Chondro Take 1 capsule by 0 Discontinued it-Vit C-Mn mouth 1 time per 019 (GLUCOSAMINE-CHONDR day. 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 09/19/2018 Other and unspecified hyperlipidemia 06/05/2009 Macular degeneration (senile) of retina 04/06/2008 Essential hypertension 04/06/2008 History of colon cancer 04/06/2008 Polymyalgia rheumatica 01/25/2005 documented as of this encounter (statuses as of 11/16/2018) Resolved Problems Problem Noted Date Resolved Date Pneumonia, organism unspecified(486) 2008 01/28/2016 documented as of this encounter (statuses as of 11/16/2018) Immunizations Name Dates Previously Given Next Due Bicillin CR 1.2 million u/2mL 01/02/2016 FLU VACCINE HIGH DOSE 65YR+ 03/02/2016, 04/05/2015, 03/17/2013 Influenza Trivalent w/preserv 03/09/2008 Pneumococcal Polysaccharide PPSV23 01/16/2005 TDAP 07/07/2010 documented as of this encounter Social History Tobacco Use Types Packs/Day Years Used Date Passive Smoke Exposure - Never Smoker Smokeless Tobacco: Never Used Alcohol Use Drinks/Week oz/Week Comments No Sexually Active Control Partners Comments Never Sex Assigned at Date Recorded Not on file Job Start Date Occupation Industry Not on file Not on file Not on file Travel History Travel Start Travel End No recent travel history available. documented as of this encounter Last Filed Vital Signs Vital Sign Reading Time Taken Blood Pressure 146/62 11/16/2018 8:30 AM CDT Pulse 82 11/16/2018 8:30 AM CDT Temperature 36.8 C (98.3 F) 11/16/2018 8:30 AM CDT Respiratory Rate 16 11/16/2018 8:30 AM CDT Oxygen Saturation 97% 11/16/2018 8:30 AM CDT Inhaled Oxygen Concentration - - Weight 76.6 kg (168 lb 14.4 oz) 11/13/2018 2:22 AM CDT Height 149.9 cm (4' 11") 11/13/2018 2:22 AM CDT Body Mass Index 34.11 11/13/2018 2:22 AM CDT documented in this encounter Functional Status Functional Status Response Date of Assessment Is the person deaf or does he/she have serious difficulty No 11/13/2018 hearing? Is this person blind or does he/she have difficulty No 11/13/2018 seeing even when wearing glasses? Do you have difficulty with walking, balance, climbing No 11/13/2018 stairs, or had a fall in the last 3 months? Does the patient have difficulty dressing or bathing? No 11/13/2018 Because of a physical, mental, or emotional condition; No 11/13/2018 does this person have difficulty doing errands alone such as visiting a doctor's office or shopping? Cognitive Status Response Date of Assessment Because of a physical, mental, or emotional condition; No 11/13/2018 does this person have serious difficulty concentrating, remembering, or making decisions? documented as of this encounter Discharge Summaries Lorrie Tian MD - 11/16/2018 10:33 AM CDT Hospital Discharge Summary Attending Physician: Lorrie Tian MD Attending Physician Specialty: Adult Hospitalist Admit Date: 11/12/2018 Discharge Date: 11/16/18 Primary Care Physician: Juan R Rodriguez MD Discharge Diagnoses Principal Problem: Closed fracture of left hip (HCC) Active Problems: Polymyalgia rheumatica (HCC) Essential hypertension Status post closed reduction with internal fixation Resolved Problems: * No resolved hospital problems. * Hospital Course Ms. Grimes is an 88 y/o F who presented on 11/12/18 after mechanical fall resulting in L comminuted, angulated, displaced intertrochanteric femur fracture. She had surgical repair with Dr. Camara on 11/13/18. Post-operative course was uneventful. Pain control was good. Eating and drinking without difficulty. Will continue Lovenox for 28 days for DVT prophylaxis. Discharged to swing bed for ongoing therapies. LabTests Pending at Discharge Follow-Up Scheduled Contact information for follow-up [facility], [facility], [facility] [address] [place] [id number] Next Steps: Follow up Instructions: Staff will provide services and therapies as needed. Nursing staff to remove kwame on November 28. Facility provider to follow up. Colin Camara MD Specialty: Orthopedic Surgery [facility] [address] [place] [id number] Next Steps: Follow up Instructions: Follow up appointment on December 26, at 1:30 PM. Preliminary Discharge Medications This list of medications is preliminary and tentative. Please see the After Visit Summary for the final and accurate medication list. Discharge Medication List START taking these medications START: acetaminophen 500 mg tablet Commonly known as: TYLENOL Dose: 1000 mg Take 2 tablets (1,000 mg) by mouth Every 8 hours START: calcium carbonate 1250 (500 Ca) MG Tabs tablet Dose: 1250 mg Take 1 tablet (1,250 mg) by mouth 1 time a day with breakfast START: diphenhydrAMINE 25 mg capsule Commonly known as: BENADRYL Dose: 25 mg Take 1 capsule (25 mg) by mouth at bedtime as needed for insomnia START: enoxaparin 40 mg syringe (100 mg/mL) subcutaneous injection solution Commonly known as: LOVENOX Dose: 40 mg Inject 40 mg subcutaneously 1 time per day for 24 days Start taking on: 11/17/2018 START: * oxyCODONE 5 mg tablet (immediate release) Commonly known as: OXY-IR Dose: 2.5 mg Take 0.5 tablets (2.5 mg) by mouth Every 4 hours as needed for moderate pain START: * oxyCODONE 5 mg tablet (immediate release) Commonly known as: OXY-IR Dose: 5 mg Take 1 tablet (5 mg) by mouth Every 4 hours as needed for severe pain START: polyethylene glycol packet Commonly known as: MIRALAX Dose: 1 packet Take 1 packet by mouth 1 time per day Dissolve in 4 to 8 ounces of water, juice , soda, coffee, tea. Start taking on: 11/17/2018 START: senna-docusate sodium 8.6-50 MG tablet Commonly known as: SENOKOT-S;PERICOLACE Dose: 1 tablet Take 1 tablet by mouth 2 times a day ; hold if already had stool that day START: vitamin D3 (cholecalciferol) 1000 unit tablet Dose: 1000 Units Take 1 tablet (1,000 Units) by mouth 1 time per day * This list has 2 medication(s) that are the same as other medications prescribed for you. Read thedirections carefully, and ask your doctor or other care provider to review them with you. CONTINUE taking these medications which have NOT CHANGED CONTINUE: bisoprolol-hydroCHLOROthiazide 5-6.25 mg tablet Commonly known as: ZIAC TAKE 1 TABLET BY MOUTH 1 TIME PER DAY CONTINUE: LUTEIN PO Take by mouth 1 time per day. CONTINUE: predniSONE 1 mg tablet TAKE 2 TABLETS (2 MG TOTAL) BY MOUTH 1 TIME PER DAY You might also be taking other medications not listed above. If you have questions about any of your other medications, talk to the person who prescribed them or your Primary Care Provider. STOP taking these medications STOP: calcium carbonate-vitamin D 600 mg-200 unit tablet Generic drug: calcium carbonate-vitamin D STOP: glucosamine-chondroitin complex capsule STOP: multivitamin Tabs Where to Get Your Medications Information about where to get these medications is not yet available Ask your nurse or doctor about these medications acetaminophen 500 mg tablet calcium carbonate 1250 (500 Ca) MG Tabs tablet diphenhydrAMINE 25 mg capsule enoxaparin 40 mg syringe (100 mg/mL) subcutaneous injection solution oxyCODONE 5 mg tablet (immediate release) oxyCODONE 5 mg tablet (immediate release) polyethylene glycol packet senna-docusate sodium 8.6-50 MG tablet vitamin D3 (cholecalciferol) 1000 unit tablet Temp: 98.3 F (36.8 C) BP: 146/62 Weight: 76.6 kg (168 lb 14.4 oz) SpO2: 97 % Resp: 16 Pulse: 82 Current BMI (>50=increased risk): (!) 34.1 O2 Device: Room Air O2 Flow Rate (L/min): 2 l/min Physical Exam Constitutional: She is oriented to person, place, and time. She appears well- developed and well-nourished. No distress. HENT: Head: Normocephalic and atraumatic. Right Ear: External ear normal. Left Ear: External ear normal. Mouth/Throat: No oropharyngeal exudate. Neck: Neck supple. Cardiovascular: Normal rate, regular rhythm, normal heart sounds and intact distal pulses. No murmur heard. Pulmonary/Chest: Effort normal and breath sounds normal. No respiratory distress. She has no wheezes. She has no rales. Abdominal: Soft. Bowel sounds are normal. She exhibits no distension. There is no tenderness. Musculoskeletal: She exhibits no edema. Neurological: She is alert and oriented to person, place, and time. No cranial nerve deficit. Skin: Skin is warm and dry. No rash noted. She is not diaphoretic. No erythema. No pallor. Psychiatric: She has a normal mood and affect. Nursing note and vitals reviewed. Procedures Performed and Findings All procedures during admission Procedure(s): left tfna synthes Consultations Obtained ORTHOPEDICS CONSULT [facility] REFERRAL Discharge Disposition ADULT Discharge Planning: Home (1, 2) Instructions for after discharge Contact your doctor if you develop a temperature greater than 101 degrees Contact your doctor if you experience increased pain, numbness, or tingling Contact your doctor if you have any questions in the first week Contact your doctor if you notice any drainage from your incision after 48 hours Contact your doctor if you notice any redness or swelling around your incision Discharge instructions - custodial to remove kwame Remove kwame 2 weeks from date of surgery. Do not begin any exercise program until you receive approval from your doctor. Walking is a safe exercise Do not operate equipment such as power tools, mowers, snow blowers Elevate extremity Elevate left lower extremity as needed for swelling. Ice to affected area: Ice to left thigh: cold packs as needed for swelling and pain. Alternate 20 minutes on and 20 minutes off. Assess skin every 2 hrs. Do not apply directly on skin. If you have questions or concerns, please call your orthopedic surgeon at the clinic Leave occlusive dressing intact for: 7 days, then change every 7 days with occlusive dressing. If incision is draining, ok to change dressing sooner. Next dressing change 11/23/18 May not return to work until after follow-up appointment May shower - Cover incision with water proof dressing so it doesn't get wet No driving No Driving until follow up with your health care provider. No tub bath until directed No use of alcohol or non-prescription drugs Notify provider with any questions or concerns Please call 911 and seek immediate emergency care if you experience any chest pain or shortness of breath or if you are coughing up blood Resume home diet Resume home diet Resume normal activity Walk frequently and gradually increase the distance you are walking Walk with assistive device Weight bearing status - as tolerated Medical Decision Making A total of 25 minutes were spent on discharge coordination. documented in this encounter Discharge Instructions Etta Austin RN - 11/16/2018Preventing Blood Clots (Deep Vein Thrombosis) In the days and weeks after surgery, you have a higher chance of developing a deep vein thrombosis (DVT). This is a condition in which a blood clot or thrombus develops in a deep vein. They are most common in the leg. But, a DVT may develop in an arm, or another deep vein in the body. A piece of the clot, called an embolus, can separate from the vein and travel to the lungs. A blood clot in the lungsis called a pulmonary embolus (PE). This can cut off the flow of blood. It is a medical emergency and may cause . Deep vein thrombosis can occur even after you go home. Follow all instructions from your health careprovider. The following are some general guidelines about DVT prevention: Anticoagulant medication. If an anticoagulant was prescribed, make sure you follow all directionsabout taking it. Be sure you know what foods and medicines may interact. Also, ask your health care provider what to do if you forget to take a dose. Compression stockings. Your health care provider will tell you how often to wear and remove the stockings. Follow all instructions closely. Each time you remove your stockings, check your legs and feet for reddened areas or sores. If you see any changes, call your health care provider right away. Returning to activity. Follow all instructions about returning to activities. Be as active as youcan. This improves blood flow and helps prevent a clot from forming. When in bed or in a chair, continue with the ankle exercises you did in the hospital. Elevate your extremity above the level of yourheart to help prevent swelling. documented in this encounter Medications at Time of Discharge Medication Sig Dispensed Refills Start Date End Date acetaminophen (TYLENOL) Take 2 tablets (1,000 0 11/16/2018 500 mg mg) by mouth Every 8 tabletIndications: hours Closed fracture of left hip, initial encounter ([facility]) diphenhydrAMINE Take 1 capsule (25 0 11/16/2018 11/21/2019 (BENADRYL) 25 mg mg) by mouth at capsuleIndications: bedtime as needed for Closed fracture of left insomnia hip, initial encounter ([facility]) enoxaparin (LOVENOX) 40 Inject 40 mg 0 11/17/2018 12/11/2018 mg syringe (100 mg/mL) subcutaneously 1 time subcutaneous injection per day for 24 days solutionIndications: Closed fracture of left hip, initial encounter ([facility]) oxyCODONE (OXY-IR) 5 mg Take 0.5 tablets (2.5 0 11/16/2018 tablet (immediate mg) by mouth Every 4 release)Indications: hours as needed for Closed fracture of left moderate pain hip, initial encounter ([facility]) oxyCODONE (OXY-IR) 5 mg Take 1 tablet (5 mg) 0 11/16/2018 tablet (immediate by mouth Every 4 release)Indications: hours as needed for Closed fracture of left severe pain hip, initial encounter ([facility]) polyethylene glycol Take 1 packet by 0 11/17/2018 (MIRALAX) mouth 1 time per day packetIndications: Dissolve in 4 to 8 Closed fracture of left ounces of water, hip, initial encounter juice, soda, coffee, (HCC) tea. senna-docusate sodium Take 1 tablet by 0 11/16/2018 (SENOKOT-S;PERICOLACE) mouth 2 times a day ; 8.6-50 MG hold if already had tabletIndications: stool that day Closed fracture of left hip, initial encounter ([facility]) predniSONE 1 mg TAKE 2 TABLETS (2 MG 180 tablet 3 05/11/2018 tabletIndications: TOTAL) BY MOUTH 1 Essential hypertension TIME PER DAY bisoprolol-hydroCHLOROt TAKE 1 TABLET BY 90 tablet 3 05/11/2018 hiazide (ZIAC) 5-6.25 MOUTH 1 TIME PER DAY mg tabletIndications: Essential hypertension LUTEIN PO Take by mouth 1 time 0 per day. vitamin D3, Take 1 tablet (1,000 30 tablet 0 11/13/2018 cholecalciferol, 1000 Units) by mouth 1 unit tabletIndications: time per day Closed fracture of left hip, initial encounter ([facility]) calcium carbonate 1250 Take 1 tablet (1,250 0 11/13/2018 (500 Ca) MG TABS mg) by mouth 1 time a tabletIndications: day with breakfast Closed fracture of left hip, initial encounter ([facility]) documented as of this encounter Progress Notes Lorrie Tian MD - 11/15/2018 12:07 PM CDT DAILY PROGRESS NOTE Maryuri Grimes is a 88yr old female admitted on 11/12/2018 9:29 PM. Impression / Plan Principal Problem: Closed fracture of left hip (HCC) Active Problems: Polymyalgia rheumatica (HCC) Essential hypertension Status post closed reduction with internal fixation Resolved Problems: * No resolved hospital problems. * # L hip fracture s/p repair -PT/OT -pain control -Lovenox for 28 days for DVT prophylaxis -will need TCU for ongoing therapy # Acute blood loss anemia secondary to surgery -stable and asymptomatic # Hypertension -bisoprolol-hctz 5-6.25 mg daily # PMR -prednisone 2 mg daily # Macular degeneration -on lutein # Obesity # Personal hx of colon ca # Dispositoin -full code -inpatient cares -Lovenox 40 mg SQ daily Interval History HPI No events overnight. Transferred from [facility] after hip repair surgery on . Pain is controlled. No nausea. Able to void ok, no BM yet. Review of Systems Review of Systems Physical Exam Vital Signs: Temp: 98.6 F (37 C) | BP: 129/45 | Pulse: 80 | Resp: 16 | Pain Ratin (out of 10) | Weight: 76.6 kg (168 lb 14.4 oz) | O2 Device: Room Air O2 Flow Rate (L/min): 2 l/min | SpO2: 92 % Maximum Temperatures (last 24 hours) Temperature Maximum Max Temp 99.9 F (37.7 C) Intake and Output: 11/14 0700 - 11/15 0659 In: 675 [Oral:675] Out: 1100 [Urine:1100] Physical Exam Constitutional: She appears well-developed and well-nourished. No distress. HENT: Head: Normocephalic and atraumatic. Eyes: Pupils are equal, round, and reactive to light. EOM are normal. Neck: Neck supple. Cardiovascular: Normal rate and regular rhythm. No murmur heard. Pulmonary/Chest: Effort normal and breath sounds normal. No respiratory distress. Abdominal: Soft. Bowel sounds are normal. Neurological: She is alert. Skin: Skin is warm and dry. Psychiatric: She has a normal mood and affect. Nursing note and vitals reviewed. Labs Labs (Last day) 11/15/18 05 - 11/15/18 05 CBC 11/15/18 0527 CBC WBC 4.0-11.0 (K/uL) 11.3 RBC 3.80-5.30 (M/uL) 2.81 Hemoglobin 11.5-15.8 (g/dL) 8.0 Hematocrit 35.0-45.0 (%) 24.4 MCV 80.0-98.0 (fL) 86.8 MCH 25.5-34.0 (pg) 28.5 MCHC 31.5-36.5 (g/dL) 32.8 RDW-CV 11.5-15.5 (%) 13.6 RDW-SD 35.5-50.0 (fl) 41.5 Platelet Count 140-400 (K/uL) 190 MPV 8.5-12.0 (fL) 9.5 11/15/18 05 - 11/15/18 05 DIFFERENTIAL 11/15/18526 DIFFERENTIAL Seg Neut Absolute 1.8-8.0 (K/uL) 7.9 Lymphocytes Absolute 0.8-4.1 (K/uL) 2.3 Monocytes Absolute 0.0-1.0 (K/uL) 1.0 Eosinophils Absolute 0.0-0.7 (K/uL) 0.1 Basophil Absolute 0.0-0.2 (K/uL) 0.0 Neutrophils Abs. (Segs and Bands) (/uL) 7,900 Neutrophils Percent (%) 69.9 Lymphocytes Percent (%) 20.1 Monocytes Percent (%) 8.8 Eosinophils Percent (%) 0.8 Basophil Percent (%) 0.1 Medical Decision making Medical Decision MakingElectronically signed by Lorrie Tian MD at 2018 12:14 PM Yajaira Howe PA - 11/15/2018 9:33 AM CDT Orthopedic Progress Note aMryuri Grimes is a 88yr old female admitted on 11/12/2018 9:29 PM. S: pt is stable overnight, pain has been controlled, she is up to the chair, will need SNF Lab Results Component Value Date HEMOGLOBIN 8.0 (L) 11/15/2018 O: Vital Signs: Temp: 98.6 F (37 C) | BP: 129/45 | Pulse: 80 | Resp: 16 | Pain Ratin (out of 10) | Weight: 76.6 kg (168 lb 14.4 oz) | O2 Device: Room Air O2 Flow Rate (L/min): 2 l/min | SpO2: 92 % Maximum Temperatures (last 24 hours) Temperature Maximum Max Temp 99.9 F (37.7 C) Exam: alert, up to chair Bandage is clean, dry, no drainage No calf pain, able to DF/PF, not able to flex hip well A: 2 Days Post-Op Status Post: Procedure(s): left tfna synthes P: continue therapies, will need SNF, WBAT, on Lovenox for DVT prophylaxis Yajaira Vincent PA-C Peri Brooks MD - 11/14/2018 2:41 PM CDT DAILY PROGRESS NOTE Maryuri Grimes is a 88yr old female admitted on 11/12/2018 9:29 PM. Impression / Plan # Closed, comminuted, angulated and displaced left intertrochanteric femur fracture after mechanicalfall s/p left TFNA synthes ( 11/13) -Underwent left TFNA procedure on 11/13. Patient denies any c/o this am. Tenderness over the left hip operated site but no hematoma. Plan: - Continue prophylactic Lovenox for 28 days through 12/11. -Pain management with scheduled tylenol, prn OXY IR 2.5mg and 5 mg q4 hours, dilaudid 0.5 mg q4 hours prn. Bowel regimen in place. -PT/OT recommend SNF. Patient to be transferred to [facility] today for further cares. # Acute blood loss anemia, post operatively, stable Baseline Hb around 12 with drop to 8 this am. No obvious hematoma noted over the left hip operated site. Plan: - Will continue to monitor. 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 # Diet: Regular Interval History HPI Patient continued to remain stable. Left hip pain post surgery well controlled on pain meds. Review of Systems Review of Systems Constitutional: Negative for activity change, appetite change, chills, fatigue and fever. HENT: Negative for congestion, facial swelling, nosebleeds, sore throat, trouble swallowing and voice change. Eyes: Negative. Respiratory: Negative for apnea, cough, choking, chest tightness, shortness of breath, wheezing and stridor. Cardiovascular: Negative for chest pain, palpitations and leg swelling. Gastrointestinal: Negative for abdominal distention, abdominal pain, constipation, diarrhea, nausea and vomiting. Endocrine: Negative. Genitourinary: Negative for decreased urine volume, difficulty urinating, frequency and urgency. Musculoskeletal: Negative for arthralgias, back pain, gait problem, joint swelling, neck pain and neck stiffness. Left hip pain. Skin: Negative for color change, pallor, rash and wound. Allergic/Immunologic: Negative. Neurological: Negative for dizziness, tremors, seizures, facial asymmetry, weakness, light-headedness, numbness and headaches. Hematological: Negative for adenopathy. Does not bruise/bleed easily. Psychiatric/Behavioral: Negative for agitation, behavioral problems, confusion, self-injury, sleep disturbance and suicidal ideas. The patient is not nervous/ anxious and is not hyperactive. Physical Exam Vital Signs: Temp: 98 F (36.7 C) | BP: 146/60 | Pulse: 67 | Resp: 16 | Pain Ratin (out of 10) | Weight: 76.6 kg (168 lb 14.4 oz) | O2 Device: Room Air O2 Flow Rate (L/min): 2 l/min | SpO2: 100 % Maximum Temperatures (last 24 hours) Temperature Maximum Max Temp 98.7 F (37.1 C) Intake and Output: 11/13 0700 - 11/14 0659 In: 2009 [Oral:550] Out: 1760 [Urine:1500] Physical Exam Constitutional: She is oriented to person, place, and time. She appears well- developed and well-nourished. HENT: Head: Normocephalic and atraumatic. Eyes: Conjunctivae are normal. Neck: Normal range of motion. Cardiovascular: Normal rate, regular rhythm, normal heart sounds and intact distal pulses. Exam reveals no gallop and no friction rub. No murmur heard. Pulmonary/Chest: Effort normal. No respiratory distress. She has no wheezes. She has no rales. She exhibits no tenderness. Abdominal: Soft. She exhibits no distension and no mass. There is no tenderness. There is no reboundand no guarding. Musculoskeletal: She exhibits no edema, tenderness or deformity. Left hip incision site appears clean with no obvious hematoma. Neurological: She is alert and oriented to person, place, and time. No cranial nerve deficit. Skin: Skin is warm. Psychiatric: She has a normal mood and affect. Her behavior is normal. Judgment and thought content normal. Labs Labs (Last day) 11/14/18 1120 - 11/14/18617 CBC 11/14/18 11211/14/18617 CBC WBC 4.0-11.0 (K/uL) 12.5 RBC 3.80-5.30 (M/uL) 3.07 Hemoglobin 11.5-15.8 (g/dL) 8.7 8.4 Hematocrit 35.0-45.0 (%) 26.7 MCV 80.0-98.0 (fL) 87.0 MCH 25.5-34.0 (pg) 27.4 MCHC 31.5-36.5 (g/dL) 31.5 RDW-CV 11.5-15.5 (%) 13.5 RDW-SD 35.5-50.0 (fl) 43.1 Platelet Count 140-400 (K/uL) 199 MPV 8.5-12.0 (fL) 9.5 11/14/1818 - 11/14/18617 CHEMISTRY 11/14/18617 CHEMISTRY Glucose 70-100 (mg/dL) 130 Sodium 135-145 (meq/L) 136 Potassium 3.5-5.3 (meq/L) 4.2 Chloride 99-110 (meq/L) 100 CO2 20-29 (meq/L) 27 Anion Gap with K 6-20 (meq/L) 13 BUN 6-22 (mg/dL) 20 Creatinine 0.60-1.10 (mg/dL) 0.71 BUN/Creatinine Ratio 10.0-25.0 28.2 Calcium 8.5-10.5 (mg/dL) 9.2 eGFR >=60 (mL/min/1.73m2) >90 eGFR Non- >=60 (mL/min/1.73m2) 78 11/14/18 0618 - 11/14/18617 DIFFERENTIAL 11/14/18617 DIFFERENTIAL Seg Neut Absolute 1.8-8.0 (K/uL) 10.1 Lymphocytes Absolute 0.8-4.1 (K/uL) 1.5 Monocytes Absolute 0.0-1.0 (K/uL) 0.9 Eosinophils Absolute 0.0-0.7 (K/uL) 0.0 Basophil Absolute 0.0-0.2 (K/uL) 0.0 Immature Granulocyte Absolute 0.00-0.06 (K/uL) 0.06 Neutrophils Abs. (Segs and Bands) (/uL) 10,100 Neutrophils Percent (%) 80.5 Lymphocytes Percent (%) 11.9 Monocytes Percent (%) 7.4 Immature Granulocyte Percent (%) 0.5 Eosinophils Percent (%) 0.0 Basophil Percent (%) 0.2 Nucleated RBC (/100 WBC's) 0 11/14/18617 - 11/14/18617 OTHER 11/14/18617 OTHER Age (Years) 88 Medical Decision making Medical Decision Making Associated attestation - Stephen Beckman MD - 11/15/2018 5:42 PM CDT I discussed the patient with the resident and personally interviewed and examined the patient. I agree with the resident's diagnosis and management. Nargis De Dios PA - 11/14/2018 10:03 AM CDT ORTHOPAEDIC POST OPERATIVE PROGRESS NOTE November 14, 2018 POD # 1 Left TFN Patient of Dr. Camara S: Maryuri Grimes is a 88yr female recovering from surgery, denies CP, SOB, vomiting, Fever or Chills, numbness/tingling. Reports some nausea this morning. Per nursing, attempted IV Zofran administration but there was a leak in her IV PT/OT: went okay this morning. Got up to the chair Pain: moderate O: Temp Readings from Last 1 Encounters: 11/14/18 98.2 F (36.8 C) BP Readings from Last 1 Encounters: 11/14/18 117/53 Pulse Readings from Last 1 Encounters: 11/14/18 103 Gen: Patient sitting up in the chair, alert and orientated, no apparent distress Incision: no drainage. Dressing C/D/I. left LEG: Warm, well perfused. No erythema. Homans negative, no calf pain. Compartments soft.EHL/ PF/DF intact. Lab Results Component Value Date WBC 12.5 (H) 11/14/2018 NUCRBC 0 11/14/2018 RBC 3.07 (L) 11/14/2018 HEMOGLOBIN 8.4 (L) 11/14/2018 HEMATOCRIT 26.7 (L) 11/14/2018 MCV 87.0 11/14/2018 MCH 27.4 11/14/2018 MCHC 31.5 11/14/2018 PLTCOUNT 199 11/14/2018 NEUTROPCT 80.5 11/14/2018 LYMPHSPCT 11.9 11/14/2018 MONOSPCT 7.4 11/14/2018 EOSPCT 0.0 11/14/2018 BASOPHILPCT 0.2 11/14/2018 Lab Results Component Value Date INR 1.0 (L) 11/12/2018 A/P: 1. s/p Left TFN: DVT prophylaxis: Lovenox x 28 days Pain control: continue same, ice/elevate Wound care: keep surgical dressing intact for 48-72 hours PT/OT: continue; WBAT Activity: as tolerated; Disposition/planning: continue cares; oral zofran ordered for nausea 2. Acute Blood loss Anemia: Expected Bertha Gastelum MD - 11/13/2018 11:42 PM CDT DAILY PROGRESS NOTE Maryuri Grimes is a 88yr old female admitted on 11/12/2018 9:29 PM. Impression / Plan Principal Problem: Closed fracture of left hip (HCC) Active Problems: Polymyalgia rheumatica (HCC) Essential hypertension Status post closed reduction with internal fixation Resolved Problems: * No resolved hospital problems. * # Left Hip Fracture - closed 2/2 mechanical fall Closed, comminuted, angulated and displaced acute left intertrochanteric femur fracture - Acute left femur fracture in the setting of mechanical fall. No chronic anticoagulation use. No known bleeding disorders. - fall was due to left knee "giving out." Has had a problem with her left knee since she was kicked in the knee by a cow as a youth. - ortho performed closed reduction and internal fixation of left intertrochanteric femur fracture - per ortho, pt tolerated procedure well and is stable post-operatively Plan: - Pain management with Tylenol 650 mg by mouth every 4 hours when necessary for mild pain, Dilaudid 0.5 mg IV every 2 hours when necessary for moderate pain, fentanyl 50 g IV every 30 minutes when necessary for severe pain. - Bone health referral has been placed - advance diet as tolerated - Bowel regimen - incentive spirometry - PT/OT, rehab placement Other Chronic Conditions: HTN: continue bisoprololhydrochlorothiazide 56.25 mg PO daily Polymyalgia rheumatica: continue prednisone 2 mg by mouth daily; no indication for stress-dose steroids d/t low dose Hx of colon cancer Macular degeneration: lutein capsule 6 mg/day po Obesity class I - BMI 34.94 Health Maintenance/Prophylaxis: Code Status: Full code DVT prophylaxis: Lovenox, SCDs Diet: NPO except meds, advance as tolerated after surgery Bowel regimen Incentive spirometry Disposition: will likely need physical therapy and possibly acute rehab prior to returning home ([place], [place]) where she lives independently. Interval History Maryuri had closed reduction internal fiction of her left intertrochanteric femur fracture today. She tolerated the procedure well and is stable post- operatively. She will continue with PT/OT evaluation and treatment tomorrow, with plan for her to do rehab before returning home. Review of Systems Review of Systems Constitutional: Negative for activity change, appetite change, chills, fatigue and fever. Eyes: Negative for visual disturbance. Respiratory: Negative for cough, chest tightness and shortness of breath. Cardiovascular: Negative for chest pain, palpitations and leg swelling. Gastrointestinal: Positive for nausea (last night, now resolved) and vomiting ( x 3 episodes last night). Negative for abdominal distention, abdominal pain, constipation and diarrhea. Genitourinary: Negative for difficulty urinating, dysuria, frequency, hematuria and urgency. Musculoskeletal: Negative for arthralgias. Left knee weakness, "gives out" since being kicked in the knee by a cow as a child Skin: Negative. Neurological: Negative for dizziness, syncope, weakness, light-headedness and headaches. Hematological: Negative. Psychiatric/Behavioral: Negative. Physical Exam Vital Signs: Temp: 98.2 F (36.8 C) | BP: 127/52 | Pulse: 80 | Resp: 14 | Pain Ratin (out of 10) | Weight: 76.6 kg (168 lb 14.4 oz) | O2 Device: Room Air O2 Flow Rate (L/min): 2 l/min | SpO2: 95 % Maximum Temperatures (last 24 hours) Temperature Maximum Max Temp 98.6 F (37 C) Intake and Output: 11/13 0700 - 11/14 0659 In: 1450 [Oral:250] Out: 1160 [Urine:900] Physical Exam Constitutional: She is oriented to person, place, and time. She appears well- developed and well-nourished. No distress. HENT: Head: Normocephalic and atraumatic. Mouth/Throat: Oropharynx is clear and moist. Eyes: Pupils are equal, round, and reactive to light. EOM are normal. Neck: Normal range of motion. Neck supple. No JVD present. Cardiovascular: Normal rate, regular rhythm, normal heart sounds and intact distal pulses. Pulmonary/Chest: Effort normal and breath sounds normal. No respiratory distress. She has no wheezes. She has no rales. She exhibits no tenderness. Abdominal: Soft. Bowel sounds are normal. She exhibits no distension. There is no tenderness. There is no guarding. Obese. Musculoskeletal: She exhibits no edema. Strength, ROM, gait not fully examined d/t hip fracture Neurological: She is alert and oriented to person, place, and time. Skin: Skin is warm and dry. Capillary refill takes less than 2 seconds. Psychiatric: She has a normal mood and affect. Her behavior is normal. Judgment and thought content normal. Nursing note and vitals reviewed. Labs Labs (Last day) 11/13/18210 - 11/13/18210 ECG/EKG 11/13/18210 ECG/EKG EKG WAVEFORM Normal sinus rhythm Left axis deviation LVH with QRS widening Abnormal ECG No previous ECGs available Ventricular Rate: 66 BPM Atrial Rate: 66 BPM P-R Interval: 206 ms QRS Duration: 132 ms Q-T Interval: 444 ms QTc Calculation(Bazett): 465 ms Calculated P Melvin: 66 degrees Calculated R Melvin: -66 degrees Calculated T Melvin: 68 degrees Current Facility-Administered Medications: sodium chloride 0.9% flush (adult) 10 mL, 10 mL, IV, 2 times a day and prn , Jamal Graham MD, 10 mL at 11/13/182019 melatonin tablet 3 mg, 3 mg, Oral, Bedtime prn, Jamal Graham MD acetaminophen (TYLENOL) tablet 650 mg, 650 mg, Oral, Every 4 hours prn, Jamal Graham MD HYDROmorphone (DILAUDID) injection solution (conc: 0.5 mg/0.5mL) 0.5 mg, 0.5 mg, IV, Every 2 hours prn, Jamal Graham MD, 0.5 mg at 11/13/18 0924 vitamin D3 (cholecalciferol) tablet 2,000 Units, 2,000 Units, Oral, Daily, Jamal Graham MD acetaminophen (TYLENOL) tablet 650 mg, 650 mg, Oral, Every 4 hours prn, Rachana Gary PA-C senna-docusate sodium (SENOKOT-S;PERICOLACE) tablet 1 tablet, 1 tablet, Oral, 2 times a day, Rachana Gary PA-C, 1 tablet at 11/13/182016 polyethylene glycol (MIRALAX) packet 1 packet, 1 packet, Oral, Daily, Rachana Gary PA-C senna-docusate sodium (SENOKOT-S;PERICOLACE) tablet 1 tablet, 1 tablet, Oral, 2 times a day prn, Rachana Gary PA-C ondansetron (ZOFRAN) injection solution 4 mg, 4 mg, IV, Every 4 hours prn, Rachana Gary PA-C enoxaparin (LOVENOX) subcutaneous injection solution 40 mg, 40 mg, Subcutaneous, Daily, Rachana Gary PA-C oxyCODONE (OXY-IR) tablet 5 mg, 5 mg, Oral, Every 6 hours, Rachana Gayr PA-C, 5 mg at 11/13/18 2328 HYDROcodone-acetaminophen (NORCO) 5-325 mg tablet 1 tablet, 1 tablet, Oral , Every 4 hours prn, 1 tablet at 11/13/18 1817 OR HYDROcodone-acetaminophen (NORCO) 5-325 mg tablet 2 tablet, 2 tablet, Oral, Every 4 hours prn, Rachana Gary PA-C fentaNYL 100 mcg/2 mL preservative free injection solution 25 mcg, 25 mcg, IV, Every 1 hour prn, Rachana Gary PA-C hydrOXYzine pamoate (VISTARIL) capsule 25 mg, 25 mg, Oral, Every 4 hours prn, Tiara Gary PA-C vancomycin in dextrose 200 mL IV piggyback (premix) 1,000 mg, 1,000 mg, IV , 1 time, Rachana Gary PA-C, 1,000 mg at 11/13/18 2328 diphenhydrAMINE (BENADRYL) injection solution 25 mg, 25 mg, IV, Every 4 hours prn, Rachana Gary PA-C fentaNYL 100 mcg/2 mL preservative free injection solution 50 mcg, 50 mcg, IV, Every 30 minutesprn, Mike Jerez MD, 50 mcg at 11/12/18 2344 bisoprolol-hydroCHLOROthiazide (ZIAC) 5-6.25 mg tablet 1 tablet, 1 tablet, Oral, daily, Jamal Graham MD, Stopped at 11/13/1824 i-shady tablet 1 tablet, 1 tablet, Oral, daily, Jamal Graham MD, 1 tablet at 11/13/182016 predniSONE tablet 2 mg, 2 mg, Oral, Daily, Jamal Graham MD Medical Decision making Medical Decision MakingElectronically signed by Rodrigue Cordon MD at 2018 4:10 PM CDT Associated attestation - Rodrigue Cordon MD - 11/14/2018 4:10 PM CDTI discussed the patient with the resident and personally interviewed and examined the patient. I agree with the patient's diagnosis and management. Rodrigue Cordon MD. documented in this encounter Plan of Treatment Date Type Specialty Care Team Description 12/08/2018 Office Visit Podiatry Ed Augustin, [place] [address] [place] [address] [phone] 12/26/2018 Office Visit Orthopedics Colin Camara MD [address] [place] [address] [phone] Name Priority Associated Diagnoses Order Schedule CLINIC REFERRAL ADVANCE Routine Closed fracture of left Expected: 12/13/2018 CARE PLAN ONE CHART hip, initial encounter (Approximate) (HCC) documented as of this encounter Implants Implanted Type Area Senior Living Sales Counselor Device Shelf Model / Identifier Expiration Serial / Date Lot Nail Tfna Ti Lft 130d [id number] N [id number] Ea1 - [id number] Ortho Left: J& J DEPUY 06/30/2027 [id number] / Implanted: Qty: 1 on 11/13/2018 by Colin Camara MD Other [employer]ES / [id number] Screw Lk Ti Nail 5x40mm N 04.005.530 Ea1 - [id number] Ortho Left: J&J DEPUY 04.005.530 / Implanted: Qty: 1 on 11/13/2018 by Colin Camara MD Other [employer] / Blade Hel Tfna Ti 100mm N 04.038.300 Ea1 - [id number] Ortho Left: J&J DEPUY 04.038.300 / Implanted: Qty: 1 on 11/13/2018 by Colin Camara MD Other [employer] / Explanted Type Area Senior Living Sales Counselor Device Shelf Model / Identifier Expiration Serial / Date Lot Gdwire [id number] N 357.399 Ea1 - [id number] Ortho Left: J&J DEPUY 357.399 / Explanted: Qty: 2 on 11/13/2018 by Colin Camara MD Other [employer] / documented as of this encounter Procedures Procedure Name Priority Date/Time Associated Comments Diagnosis LAB ONLY-COMPLETE BLOOD Routine 11/15/2018 5:27 Results for this COUNT WITH DIFFERENTIAL AM CDT procedure are in the results section. COMPLETE BLOOD COUNT Routine 11/15/2018 5:27 Results for this WITH DIFFERENTIAL AM CDT procedure are in the results section. HEMOGLOBIN Routine 11/14/2018 11:20 Results for this AM CDT procedure are in the results section. LAB ONLY-COMPLETE BLOOD Routine 11/14/2018 6:18 Results for this COUNT WITH DIFFERENTIAL AM CDT procedure are in the results section. BASIC METABOLIC PANEL Routine 11/14/2018 6:18 Results for this AM CDT procedure are in the results section. COMPLETE BLOOD COUNT Routine 11/14/2018 6:18 Results for this WITH DIFFERENTIAL AM CDT procedure are in the results section. XRAY C-ARM Routine 11/13/2018 12:26 Results for this PM CDT procedure are in the results section. NAILING INTRAMEDULLARY 11/13/2018 9:15 S/p left hip FEMUR AM CDT fracture Special Needs have reduction clamps available EKG STAT 11/13/2018 2:11 AM CDT LAB ONLY-COMPLETE BLOOD COUNT STAT 11/12/2018 10:44 PM CDT Results for this WITH DIFFERENTIAL procedure are in the results section. LAB ONLY-ABORH STAT 11/12/2018 10:44 PM CDT COMPLETE BLOOD COUNT WITH STAT 11/12/2018 10:44 PM CDT Results for this DIFFERENTIAL procedure are in the results section. TYPE AND SCREEN STAT 11/12/2018 10:37 PM CDT PROTIME/INR STAT 11/12/2018 10:37 PM CDT COMPREHENSIVE METABOLIC PANEL STAT 11/12/2018 10:37 PM CDT XRAY PELVIS WITH HIP 1 [facility] 11/12/2018 10:17 PM CDT Results for this LT procedure are in the results section. documented in this encounter Results LAB ONLY-COMPLETE BLOOD COUNT WITH DIFFERENTIAL (11/15/2018 5:27 AM CDT)Only the most recent of3 resultswithin the time period is included. WBC 11.3 (H) 4.0 - 11.0 K/uL [facility] RBC 2.81 (L) 3.80 - 5.30 [facility] M/Critical access hospital Hemoglobin 8.0 (L) 11.5 - 15.8 [facility] g/dL [place] Hematocrit 24.4 (L) 35.0 - 45.0 % [facility] MCV 86.8 80.0 - 98.0 fL [facility] MCH 28.5 25.5 - 34.0 pg [facility] MCHC 32.8 31.5 - 36.5 [facility] g/dL [place] RDW-CV 13.6 11.5 - 15.5 % [facility] RDW-SD 41.5 35.5 - 50.0 fl [facility] Platelet Count 190 140 - 400 K/uL [facility] MPV 9.5 8.5 - 12.0 fL [facility] Seg Neut Absolute 7.9 1.8 - 8.0 K/uL [facility] Lymphocytes Absolute 2.3 0.8 - 4.1 K/uL [facility] Monocytes Absolute 1.0 0.0 - 1.0 K/uL [facility] Eosinophils Absolute 0.1 0.0 - 0.7 K/uL [facility] Basophil Absolute 0.0 0.0 - 0.2 K/uL [facility] Neutrophils Abs. 7,900 /uL [facility] (Segs and Bands) [place] Neutrophils Percent 69.9 % [facility] Lymphocytes Percent 20.1 % [facility] Monocytes Percent 8.8 % [facility] Eosinophils Percent 0.8 % [facility] Basophil Percent 0.1 % [facility] Specimen Blood Performing Organization Address [facility]/Zipcode Phone Number [facility] [address] [place] [address] HEMOGLOBIN (11/14/2018 11:20 AM CDT) [facility] Hemoglobin 8.7 (L) 11.5 - 15.8 g/dL [address] Specimen Blood Performing Organization Address City/[facility]/Zipcode Phone Number [place] [address] [facility] [place] [place] [address] BASIC METABOLIC PANEL (11/14/2018 6:18 AM CDT) [facility] Glucose 130 (H) 70 - 100 mg/dL [address] BUN 20 6 - 22 mg/dL [place] [address] CLIN[facility] Creatinine 0.71 0.60 - 1.[address] mg/dL BUN/Creatinine Ratio 28.2 (H) 10.0 - 25.[address] Sodium 136 135 - 145 meq/L [address] Potassium 4.2 3.5 - 5.3 meq/L [address] Chloride 100 99 - 110 meq/L [address] CO2 27 20 - 29 meq/L [address] Anion Gap with K 13 6 - 20 meq/L [address] Calcium 9.2 8.5 - 10.[address] mg/dL Age [address] eGFR Non- 78 >=[address] I[place]ian mL/min/1.73m2 eGFR >90 >=[address] mL/min/1.73m2 Specimen Blood Performing Organization Address City/State/Zipcode Phone Number [address] [place] [address] XRAY C-ARM LESS THAN ONE HR (11/13/2018 12:26 PM CDT) Specimen Narrative Performed At [facility] Patient Name: MARYURI GRIMES Date of :1930 Procedure: XRAY C-ARM Date of Service: 11/13/2018 EXAM: XRAY C-ARM INDICATION:S/p left hip fracture [Z87.81] IMPRESSION: Fluoroscopy was provided for Dr. camara. Multiple spot images were submitted for archiving. Finalized by: Bandar Roche MD on 11/13/2018 6:30 PM CDT Patient/Procedure Information: MRN/CARLOS: [id number] Order Number: [id number] Accession Number: [id number] Ordering Provider: COLIN CAMARA Authorizing Provider: COLIN CAMARA Procedure Note Interface, [place] - 11/13/2018 7:21 PM CDT Patient Name: MARYURI GRIMES Date of : 1930 Procedure: XRAY C-ARM Date of Service: 11/13/2018 EXAM: XRAY C-ARM INDICATION:S/p left hip fracture [Z87.81] IMPRESSION: Fluoroscopy was provided for Dr. camara. Multiple spot images were submitted for archiving. Finalized by: Bandar Roche MD on 11/13/2018 6:30 PM CDT Patient/Procedure Information: MRN/CARLOS: [id number] Order Number: [id number] Accession Number: [id number] Ordering Provider: COLIN CAMARA Authorizing Provider: COLIN CAMARA Performing Organization Address [facility] Phone Number [facility] EKG (11/13/2018 2:11 AM CDT) EKG WAVEFORM TRACEHIGINIOSTANANDA OLIVERAB Normal sinus rhythm Left axis deviation LVH with QRS widening Abnormal ECG No previous ECGs available Ventricular Rate: 66 BPM Atrial Rate: 66 BPM P-R Interval: 206 ms QRS Duration: 132 ms Q-T Interval: 444 ms QTc Calculation(Bazett): 465 ms Calculated P Melvin: 66 degrees Calculated R Melvin: -66 degrees Calculated T Melvin: 68 degrees Specimen Narrative Performed At Performing Organization Address [facility] Phone Number [facility] LAB ONLY-ABORH (11/12/2018 10:44 PM CDT) ABO Type A [address] BLOOD BANK Rh Type Positive [address] BLOOD BANK Specimen Blood Performing Organization Address [facility] Phone Number [address] BLOOD BANK [address] [place] [address] TYPE AND SCREEN (11/12/2018 10:37 PM CDT) ABO Type A [address] BLOOD BANK Rh Type Positive [address] BLOOD BANK Antibody Screen Negative [address] Comment: BLOOD BANK Allogenic Red Cells Available 11/13/2018 Expiration Date 11/15/2018 23:[address] BLOOD BANK Specimen Blood Performing Organization Address [facility] Phone Number [address] BLOOD BANK [address] [place] [address] PROTIME/INR (11/12/2018 10:37 PM CDT) Protime 13.4 12.0 - 14.5 secs [facility] INR 1.0 (L) 2.0 - 3.[address] Specimen Blood Narrative Performed At Normal INR reference range (patients not on oral [address] anticoagulants)0.9-1.1. INR Standard Intensity=(2.0 - 3.0) INR Higher Intensity=(2.5 - 3.5) Performing Organization Address [facility] [facility] Phone Number [place] [address] [facility] [address] [place] [address] COMPREHENSIVE METABOLIC PANEL (11/12/2018 10:37 PM CDT) Glucose 156 (H) 70 - 100 mg/dL [address] BUN 30 (H) 6 - 22 mg/dL [address] Creatinine 0.98 0.60 - 1.[address] mg/dL BUN/Creatinine Ratio 30.6 (H) 10.0 - 25.[address] Sodium 139 135 - 145 meq/L [address] Potassium 3.8 3.5 - 5.3 meq/L [address] Chloride 100 99 - 110 meq/L [address] CO2 26 20 - 29 meq/L [address] Anion Gap with K 17 6 - 20 meq/L [address] Calcium 10.2 8.5 - 10.[address] mg/dL Protein Total 7.7 6.0 - 8.2 g/dL [address] Albumin 4.2 3.5 - 5.0 g/dL [address] Alkaline Phosphatase 50 30 - 150 U/L [address] AST - SGOT 24 0 - 35 U/L [address] ALT - SGPT 15 0 - 55 U/L [address] Bilirubin Total 0.4 0.2 - 1.2 mg/dL [address] Age [address] eGFR Non- 53 (L) >=[address] Ivorian mL/min/1.73m2 eGFR 65 >=[address] mL/min/1.73m2 Specimen Blood Performing Organization Address [facility] Phone Number [address] [place] [address] XRAY PELVIS WITH HIP 1 VIEW LT (11/12/2018 10:17 PM CDT) Specimen Narrative Performed At [facility] Patient Name: MARYURI GRIMES Date of :1930 Procedure: XRAY PELVIS WITH HIP 1 VIEW LT Date of Service: 11/12/2018 EXAM: XRAY PELVIS WITH HIP 1 VIEW LT INDICATION:Pain COMPARISON(S): None Available FINDINGS/IMPRESSION: There is a comminuted, angulated and displaced acute left intertrochanteric femur fracture. Distal fracture fragment is displaced by as much as 1.5 cm anteriorly relative to the proximal fracture fragment. No other definite acute fractures identified. 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 Finalized by: Zacarias Amos MD on 11/13/2018 12:05 AM CDT Patient/Procedure Information: MRN/CARLOS: [id number] Order Number: [id number] Accession Number: [id number] Ordering Provider: MIKE JEREZ Authorizing Provider: MIKE JEREZ Procedure Note Interface, [place] - 11/13/2018 12:07 AM CDT Patient Name: MARYURI GRIMES Date of : 1930 Procedure: XRAY PELVIS WITH HIP 1 VIEW LT Date of Service: 11/12/2018 EXAM: XRAY PELVIS WITH HIP 1 VIEW LT INDICATION:Pain COMPARISON(S): None Available FINDINGS/IMPRESSION: There is a comminuted, angulated and displaced acute left intertrochanteric femur fracture. Distal fracture fragment is displaced by as much as 1.5 cm anteriorly relative to the proximal fracture fragment. No other definite acute fractures identified. 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 Finalized by: Zaacrias Amos MD on 11/13/2018 12:05 AM CDT Patient/Procedure Information: MRN/CARLOS: [id number] Order Number: [id number] Accession Number: [id number] Ordering Provider: MIKE JEREZ Authorizing Provider: MIKE JEREZ Performing Organization Address City/State/Zipcode Phone Number [id number] documented in this encounter Visit Diagnoses Diagnosis Closed fracture of left hip, initial encounter (HCC) Polymyalgia rheumatica (HCC) Polymyalgia rheumatica Essential hypertension Unspecified essential hypertension Status post closed reduction with internal fixation documented in this encounter Discharge Diagnoses Not on filedocumented in this encounter Administered Medications Medication Order MAR Action Action Date Dose Rate Site acetaminophen (TYLENOL) tablet Given 11/16/2018 5:36 AM CDT 1,000 mg 1,000 mg 1,000 mg, Oral, Every eight hours, First dose on Wed11/14/18 at 0635, Until Discontinued, Total dose of acetaminophen from all acetaminophen containing products should not exceed 4 grams (4000 mg) per day., Given 11/15/2018 9:57 PM CDT 1,000 mg Given 11/15/2018 1:50 PM CDT 1,000 mg bisoprolol-hydroCHLOROthiazide (ZIAC) Given 11/16/2018 8:38 AM CDT 1 tablet 5-6.25 mg tablet 1 tablet 1 tablet, Oral, DAILY, First dose on Wed11/13/18 at 0900, Until Discontinued, Hold for SBP less than 100 Hold for HR less than 60, Given 11/15/2018 9:00 AM CDT 1 tablet Given 11/14/2018 8:18 AM CDT 1 tablet diphenhydrAMINE (BENADRYL) capsule 25 mg Given 11/15/2018 9:57 PM CDT 25 mg 25 mg, Oral, Bedtime prn, Starting Wed11/15/18 at 2022, Until Discontinued, insomnia diphenhydrAMINE (BENADRYL) injection solution Given 11/14/2018 10:09 PM CDT 25 mg 25 mg 25 mg, IV, Every four hours prn, 5 doses, Starting Wed11/13/18 at 1359, Until Discontinued, itching, 1 mL, Post - Op, May repeat 4 times If preference is to further dilute for IV administration: First draw up patient-specific dose, then dilute to 10 mL with 0.9% sodium chloride., Given 11/14/2018 6:16 PM CDT 25 mg enoxaparin (LOVENOX) subcutaneous injection Given 11/16/2018 8:37 AM CDT 40 mg solution 40 mg 40 mg, Subcutaneous, Daily, 28 doses, First dose on Wed11/14/18 at 0800, Last dose on Wed12/11/18 at 0800, Post - Op, Begin 0800 on first post op day. To avoid the loss of drug when using the 30 mg and 40 mg prefilled syringes, do not expel the air bubble from the syringe before the injection. Administration should be alternated between the left and right anterolateral and left and right posterolateral abdominal wall. The whole length of the needle should be introduced into a skin fold held between the thumb and forefinger; the skin fold should be held throughout the injection. To minimize bruising, do not rub the injection site after completion of the injection., Given 11/15/2018 9:00 AM CDT 40 mg Given 11/14/2018 8:18 AM CDT 40 mg HYDROmorphone (DILAUDID) injection solution (conc: 0.5 mg/0.5mL) 0.5 mg 0.5 mg, IV, Every two hours prn, Starting 11/14/18 at 0632, Until Discontinued, breakthrough pain, pain not controlled with oral pain meds, 0.5 mL i-shady tablet 1 tablet Given 11/14/2018 10:05 PM CDT 1 tablet 1 tablet, Oral, DAILY, First dose on 11/13/18 at 2100, Until Discontinued, Formulary Substitute for lutein, Given 11/13/2018 8:17 PM CDT 1 tablet melatonin tablet 3 mg 3 mg, Oral, Bedtime prn, Starting 11/13/18 at 0008, Until Discontinued, other (Specify), insomnia, If inadequate response in 60 minutes, may proceed to next choice option or, if no other options, contact provider., ondansetron (ZOFRAN ODT) dispersible tablet 4 Given 11/14/2018 10:34 AM CDT 4 mg mg 4 mg, Oral, Every four hours prn, Starting 11/14/18 at 1018, Until Discontinued, nausea, vomiting, For partial dose (other than a full tablet), split tablet (wearing gloves) just prior to administration. Gently remove from package by peeling open immediately prior to administration. DO NOT push tablet through package. Once dose is placed in mouth it will dissolve quickly., oxyCODONE (OXY-IR) tablet 2.5 mg 2.5 mg, Oral, Every four hours prn, Starting 11/14/18 at 0633, Until Discontinued, moderate pain oxyCODONE (OXY-IR) tablet 5 mg Given 11/16/2018 10:06 AM CDT 5 mg 5 mg, Oral, Every four hours prn, Starting 11/14/18 at 0633, Until Discontinued, severe pain Given 11/15/2018 7:48 PM CDT 5 mg Given 11/15/2018 12:55 AM CDT 5 mg polyethylene glycol (MIRALAX) packet 1 Given 11/16/2018 8:37 AM CDT 1 packet packet 1 packet, Oral, Daily, First dose on Wed11/14/18 at 0900, Until Discontinued, Post - Op, Hold if 2 loose stools occur in the last 24 hours., Given 11/15/2018 9:00 AM CDT 1 packet Given 11/14/2018 8:18 AM CDT 1 packet predniSONE tablet 2 mg Given 11/16/2018 8:38 AM CDT 2 mg 2 mg, Oral, Daily, First dose on 11/13/18 at 0900, Until Discontinued Given 11/15/2018 9:00 AM CDT 2 mg Given 11/14/2018 8:18 AM CDT 2 mg senna-docusate sodium Given 11/15/2018 9:00 AM CDT 1 tablet (SENOKOT-S;PERICOLACE) tablet 1 tablet 1 tablet, Oral, Two times a day prn, Starting 11/13/18 at 1359, Until Discontinued, constipation, Post - Op, Use first for constipation unless patient cannot take oral medications, senna-docusate sodium Given 11/16/2018 8:38 AM CDT 2 tablets (SENOKOT-S;PERICOLACE) tablet 2 tablet 2 tablet, Oral, Two times a day, First dose on Wed11/14/18 at 0810, Until Discontinued Given 11/15/2018 9:00 AM CDT 2 tablets Given 11/14/2018 10:06 PM CDT 2 tablets sodium chloride 0.9% flush (adult) 10 mL Given 11/16/2018 8:38 AM CDT 10 mL 10 mL, IV, Two times a day and prn, First dose on 11/13/18 at 0900, Until Discontinued, 10 mL, Flush IV line as scheduled and as often as necessary before and after meds., Given 11/15/2018 7:55 PM CDT 10 mL Given 11/15/2018 8:48 AM CDT 10 mL vitamin D3 (cholecalciferol) tablet Given 11/16/2018 8:38 AM CDT 2,000 Units 2,000 Units 2,000 Units, Oral, Daily, First dose on 11/13/18 at 0900, Until Discontinued Given 11/15/2018 9:00 AM CDT 2,000 Units Given 11/14/2018 8:18 AM CDT 2,000 Units Medication Order MAR Action Action Date Dose Rate Site diphenhydrAMINE (BENADRYL) Given 11/12/2018 9:45 PM CDT 25 mg injection solution 25 mg 25 mg, IV, Now, 1 dose, 11/12/18 at 2140, 1 mL, If preference is to further dilute for IV administration: First draw up patient-specific dose, then dilute to 10 mL with 0.9% sodium chloride., fentaNYL 100 mcg/2 mL preservative free Given 11/12/2018 11:44 PM CDT 50 mcg injection solution 50 mcg 50 mcg, IV, Every thirty minutes prn, Starting 11/12/18 at 2136, Until 11/14/18 at 0637, severe pain, 2 mL Given 11/12/2018 10:26 PM CDT 50 mcg Given 11/12/2018 9:46 PM CDT 50 mcg HYDROcodone-acetaminophen (NORCO) 5-325 mg Given 11/13/2018 6:17 PM CDT 1 tablet tablet 1 tablet 1 tablet, Oral, Every four hours prn, Starting 11/13/18 at 1248, Until Wed11/14/18 at 0634, other (Specify), see admin instructions, PACU - Continue Post-Op, Give 1 tablet FIRST for pain Scale 4 to 6; if pain unrelieved by 1 tablet for pain score 4-6, do NOT give another tablet, but instead assess if IV medication order is present for pain unrelieved by oral medication. Recommended maximum (adults) of 4,000 milligrams of acetaminophen per day (from all sources/products)., HYDROmorphone (DILAUDID) injection solution Given 11/13/2018 9:24 AM CDT 0.5 mg (conc: 0.5 mg/0.5mL) 0.5 mg 0.5 mg, IV, Every two hours prn, Starting 11/13/18 at 0010, Until 11/14/18 at 0634, moderate pain, 0.5 mL Given 11/13/2018 5:48 AM CDT 0.5 mg Given 11/13/2018 1:27 AM CDT 0.5 mg lactated ringers IV solution Already Infusing 11/13/2018 12:59 PM CDT 125 mL/hr IV, at 125 mL/hr, Continuous, Starting Wed11/13/18 at 1300, Until Wed11/13/18 at 1358, 1,000 mL, PACU, TKO current fluids if patient is going to Day Unit / ARU and tolerating PO fluids without nausea., ondansetron (ZOFRAN) injection solution 4 mg Given 11/14/2018 9:56 AM CDT 4 mg 4 mg, IV, Every four hours prn, Starting Wed11/13/18 at 1246, Until Wed11/14/18 at 1018, nausea, vomiting, 2 mL, PACU - Continue Post-Op, Use FIRST for nausea/vomiting. If ineffective after 15 minutes use haloperidol if ordered for nausea/vomiting. If preference is to further dilute for IV administration: First draw up patient-specific dose, then dilute to 10 mL with 0.9% sodium chloride., oxyCODONE (OXY-IR) tablet 5 mg Given 11/14/2018 5:50 AM CDT 5 mg 5 mg, Oral, Every six hours, First dose on Wed11/14/18 at 0005, Until Discontinued, Post - Op Given 11/13/2018 11:28 PM CDT 5 mg senna-docusate sodium Given 11/13/2018 8:17 PM CDT 1 tablet (SENOKOT-S;PERICOLACE) tablet 1 tablet 1 tablet, Oral, Two times a day, First dose on Wed11/13/18 at 2100, Until Discontinued, Post - Op, Hold if 2 loose stools occur in the last 24 hours., sodium chloride 0.9% IV solution New Bag 11/13/2018 1:42 AM CDT 100 mL/hr IV, at 100 mL/hr, Continuous, Starting Wed11/13/18 at 0200, Until Wed11/13/18 at 1159, 1,000 mL vancomycin in dextrose 200 mL IV piggyback Given 11/13/2018 11:28 PM CDT 1, 000 mg (premix) 1,000 mg 1,000 mg, IV, One time, 1 dose, Wed11/13/18 at 2300, 200 mL, PACU - Continue Post-Op documented in this encounter
[2018-12-10] MEDS: Acetaminophen 500 MG Tab PO SCH ×3 (05:29→21:27)
[2018-12-10] MEDS: Enoxaparin 40 MG/0.4 ML Syringe SUBCUT SCH (08:26)
[2018-12-10] MEDS: Calcium Carbonate 500 MG Tablet PO SCH (08:26)
[2018-12-10] MEDS: Ferrous Sulfate 325 MG Tab PO SCH ×2 (08:26→18:25)
[2018-12-10] MEDS: predniSONE 1 MG Tab PO SCH (08:26)
[2018-12-10] MEDS: Cholecalciferol (Vitamin D3) 25 MCG Tab PO SCH (08:27)
[2018-12-11] MEDS: Acetaminophen 500 MG Tab PO SCH ×3 (05:59→21:24)
[2018-12-11] MEDS: Ferrous Sulfate 325 MG Tab PO SCH ×2 (09:12→17:56)
[2018-12-11] MEDS: Calcium Carbonate 500 MG Tablet PO SCH (09:12)
[2018-12-11] MEDS: predniSONE 1 MG Tab PO SCH (09:12)
[2018-12-11] MEDS: Cholecalciferol (Vitamin D3) 25 MCG Tab PO SCH (09:12)
[2018-12-12] MEDS: Acetaminophen 500 MG Tab PO SCH (05:56)
[2018-12-12 06:49] VITALS: BP 135/62; PULSE 68
[2018-12-12] MEDS: Calcium Carbonate 500 MG Tablet PO SCH (07:44)
[2018-12-12] MEDS: Ferrous Sulfate 325 MG Tab PO SCH (07:44)
[2018-12-12] MEDS: predniSONE 1 MG Tab PO SCH (09:32)
[2018-12-12] MEDS: Cholecalciferol (Vitamin D3) 25 MCG Tab PO SCH (09:32)
--- NOTE | 2018-12-12 10:19 | PCM.DCSUM1 ---
Discharge Summary - Hospital Course HPI Initial Comments: Patient is an 88 year old female who sustained left hip fracture on November 12. She underwent open reduction and internal fixation by Dr Camara [facility] on November 13. She had monitoring for low hemoglobin which was lowest at 8.0, repeat Hgb 8.8. History of right colon cancer treated with resection, diverticulosis also treated with left colon resection. Diagnosis: Stroke: No - Discharge Data Discharge Date: 12/12/18 Discharge Disposition: Home, [facility] Condition: Good - Discharge Diagnosis/Problem(s) (1) Status post-operative repair of closed fracture of left hip SNOMED Code(s): 420044767 ICD Code: Z98.890 - OTHER SPECIFIED POSTPROCEDURAL STATES; Z87.81 - PERSONAL HISTORY OF (HEALED) TRAUMATIC FRACTURE Status: Acute Current Visit: Yes Onset Date: ~11/13/18 Problem Details: by Dr Camara (2) Closed fracture of left hip SNOMED Code(s): 552653210 ICD Code: S72.002A - FRACTURE OF UNSP PART OF NECK OF LEFT FEMUR, INIT Status: Acute Current Visit: Yes Onset Date: ~11/12/18 (3) Essential hypertension SNOMED Code(s): 69002983 ICD Code: I10 - ESSENTIAL (PRIMARY) HYPERTENSION Status: Acute Current Visit: Yes (4) Polymyalgia rheumatica SNOMED Code(s): 36567297 ICD Code: M35.3 - POLYMYALGIA RHEUMATICA Status: Acute Current Visit: Yes (5) Acute blood loss anemia SNOMED Code(s): 035219647 ICD Code: D62 - ACUTE POSTHEMORRHAGIC ANEMIA Status: Acute Current Visit : Yes - Patient Summary/Data Consults: Consultations 11/16/18 11:31 OT Evaluation and Treatment [CONS] Routine Please Evaluate and Treat. OT Reason for Consult: ADL's This query below is only for informational purposes and is not editable. PT Evaluation and Treatment [CONS] Routine Please Evaluate and Treat. PT Reason for Consult: Post op Ortho Surgery This query below is only for informational purposes and is not editable. Hospital Course: Patient has been doing well during her swing bed stay, she had her prednisone increased to 4 mg daily which she states has helped with her post operative pain but also her polymyalgia rheumatica pain. She was able to wean off oxycodone for pain control and has not used it for a week now. She is ambulating well by herself with front wheel walker. No chest pain, shortness of breath, nausea, vomiting, diarrhea, constipation or urinary symptoms at discharge. She had acute blood loss anemia when she came to swing bed at 8.8, lowest in acute care was 8.0, remained stable at 8.7 when rechecked on November 26. Had her kwame removed November 28 and completed 24 days of Lovenox treatment for DVT prophylaxis. - Patient Instructions Diet: Regular Diet as Tolerated Activity: As Tolerated Notify Provider of: Fever, Increased Pain, Swelling and Redness, Drainage Other/Special Instructions: Follow up with Dr Rodriguez in 1-2 weeks. Follow up with Orthopedics as previously scheduled. Follow up with Podiatry as previously scheduled. - Discharge Plan *PRESCRIPTION DRUG MONITORING PROGRAM REVIEWED*: No *COPY OF PRESCRIPTION DRUG MONITORING REPORT IN PATIENT JAEL: No Prescriptions/Med Rec: Ascorbic Acid [Vitamin C] 500 mg PO BID 30 Days #60 tablet.er Ferrous Sulfate 325 mg PO BIDMEALS 30 Days #60 tablet predniSONE 4 mg PO DAILY 30 Days #30 tablet Sennosides/Docusate Sodium [Senna-S] 1 each PO DAILY PRN 30 Days #30 tablet PRN Reason: Constipation Home Medications: Home Meds Bisoprolol/Hydrochlorothiazide [Bisoprolol/HCTZ 5-6.25 MG] 1 tab PO DAILY [History] Lutein 1 cap PO DAILY 09/22/18 [History] Acetaminophen [Acetaminophen Extra Strength] 1,000 mg PO Q8H 11/16/18 [History] Calcium Carbonate [Calcium] 500 mg PO WITHBREAKFAST 11/16/18 [History] Cholecalciferol (Vitamin D3) [Vitamin D3] 25 mcg PO DAILY 11/16/18 [History] diphenhydrAMINE [Benadryl] 25 mg PO BEDTIME PRN 11/16/18 [History] Ascorbic Acid [Vitamin C] 500 mg PO BID 30 Days #60 tablet.er 12/12/18 [Rx] Ferrous Sulfate 325 mg PO BIDMEALS 30 Days #60 tablet 12/12/18 [Rx] Sennosides/Docusate Sodium [Senna-S] 1 each PO DAILY PRN 30 Days #30 tablet 04/20 [Rx] predniSONE 4 mg PO DAILY 30 Days #30 tablet 12/12/18 [Rx] Patient Handouts: Fall Prevention in Hospitals, Adult, Venous Thromboembolism Prevention - Discharge Summary/Plan Comment DC Time >30 min.: Yes - Patient Data Vitals - Most Recent: Last Vital Signs Temp 36.7 C 12/12/18 06:48 Pulse 68 12/12/18 06:48 Resp 16 12/12/18 06:48 BP 135/62 12/12/18 06:48 Pulse Ox 97 12/12/18 06:48 Weight - Most Recent: 73.964 kg Med Orders - Current: Current Medications Acetaminophen (Tylenol Extra Strength) 1,000 mg PO Q8H [facility] Last Admin: 12/12/18 05:56 Dose: 1,000 mg Bisacodyl (Dulcolax) 5 mg PO DAILY PRN PRN Reason: Constipation Bisoprolol Fumarate/HCTZ (Ziac 5-6.25 Mg) 1 tab PO DAILY [facility] Last Admin: 12/12/18 09:32 Dose: 1 tab Calcium Carbonate/Glycine (Oyster Shell Calcium) 500 mg PO WITHBREAKFAST [facility] Last Admin: 12/12/18 07:44 Dose: 500 mg Cholecalciferol (Vitamin D3) 25 mcg PO DAILY [facility] Last Admin: 12/12/18 09:32 Dose: 25 mcg Diphenhydramine HCl (Benadryl) 25 mg PO BEDTIME PRN PRN Reason: Insomnia Last Admin: 11/20/18 21:20 Dose: 25 mg Ferrous Sulfate (Ferrous Sulfate) 325 mg PO BIDMEALS [facility] Last Admin: 12/12/18 07:44 Dose: 325 mg Lutein (Lutein) 10 mg PO DAILY [facility] Last Admin: 12/12/18 09:31 Dose: 10 mg Oxycodone HCl (Oxycodone) 2.5 mg PO Q4H PRN PRN Reason: Pain (moderate 4-6) Last Admin: 12/06/18 08:58 Dose: 2.5 mg Polyethylene Glycol (Miralax) 17 gm PO DAILY PRN PRN Reason: Constipation Prednisone (Prednisone) 4 mg PO DAILY [facility] Last Admin: 12/12/18 09:32 Dose: 4 mg Promethazine HCl (Phenergan) 12.5 mg PO Q4H PRN PRN Reason: NAUSEA/VOMITING Last Admin: 11/23/18 08:38 Dose: 12.5 mg Senna/Docusate Sodium (Senna Plus) 1 tab PO BID [facility] Last Admin: 12/12/18 09:31 Dose: Not Given Discontinued Medications Enoxaparin Sodium (Lovenox) 40 mg SUBCUT DAILY [facility] Stop: 12/10/18 09:01 Last Admin: 12/10/18 08:26 Dose: 40 mg Oxycodone HCl (Oxycodone) 5 mg PO Q4H PRN PRN Reason: Pain (severe 7-10) Last Admin: 11/18/18 19:04 Dose: 5 mg Polyethylene Glycol (Miralax) 17 gm PO DAILY [facility] Last Admin: 12/01/18 08:09 Dose: Not Given Prednisone (Prednisone) 2 mg PO DAILY [facility] Last Admin: 11/17/18 08:52 Dose: 2 mg Promethazine HCl (Phenergan) 12.5 mg PO ONETIME ONE Stop: 11/16/18 12:20 Last Admin: 11/16/18 12:51 Dose: 12.5 mg - Exam General: Reports: Alert, Oriented, Cooperative Lungs: Reports: Clear to Auscultation, Normal Respiratory Effort Cardiovascular: Reports: Regular Rate, Regular Rhythm GI/Abdominal Exam: Normal Bowel Sounds, Soft, Non-Tender, No Distention Extremities: Pedal Edema (trace, mild tenderness) Skin: Reports: Warm, Dry
== END 2018-12-12 13:30 | disposition home health service (06) | DRG 559 ==
LOC: FB.MS 11:45
PROVIDERS: ADMIT Family Medicine; ATTEND Family Medicine
DX: Z47.89 Encounter for other orthopedic aftercare (principal); S72.002A Fracture of unspecified part of neck of left femur, initial encounter for closed fracture; D62 Acute posthemorrhagic anemia; X58.XXXA Exposure to other specified factors, initial encounter; Y93.9 Activity, unspecified; R11.0 Nausea; L89.899 Pressure ulcer of other site, unspecified stage; H35.30 Unspecified macular degeneration; E78.00 Pure hypercholesterolemia, unspecified; I10 Essential (primary) hypertension; R01.1 Cardiac murmur, unspecified; M35.3 Polymyalgia rheumatica; Z66 Do not resuscitate; Z85.038 Personal history of other malignant neoplasm of large intestine; Z90.49 Acquired absence of other specified parts of digestive tract; Z98.42 Cataract extraction status, left eye; Z98.41 Cataract extraction status, right eye; Z90.710 Acquired absence of both cervix and uterus; Z88.1 Allergy status to other antibiotic agents; Z88.2 Allergy status to sulfonamides; Z79.52 Long term (current) use of systemic steroids; Z79.899 Other long term (current) drug therapy
CPT/HCPCS: 36415; 80048; 85018; 85025; 93971-LT; 97110-GO; 97110-GP; 97116-GP; 97140-GP; 97161-GP; 97165-GO; 97530-GO; 97535-GO; A9270-GY; J1650